=== PATIENT | female | born 1950 | race Caucasian/White ===

== ENCOUNTER 2019-04-22 07:08 | Inpatient (IN) | payer MEDICARE, BC ==
[~2019-04-22] VITALS: Ht 165.1 cm; Wt 81.6 kg
--- NOTE | 2019-04-22 07:09 | Emergency Room Report ---
History of Present Illness General Source: Patient, EMS Present Illness HPI Patient is a 69-year-old female brought in by EMS after increased difficulty with breathing. Patient taken Ambien last night and woke up this morning with increased shortness of breath. She had prior history of COPD as well as prior episodes of pulmonary edema. She was noted to be markedly hypertensive by EMS. She had been started on CPAP prior to arrival. She was initially wheezing but had improvement after breathing treatments by paramedics. She had reportedly been having increased shortness of breath over the past 3 years but this had worsened acutely last night. Patient is a current smoker. She takes Spiriva inhalers as well as medications for hypertension including Coreg. She does not regularly take steroids. Denies any fever. No productive cough Allergies: Coded Allergies: No Known Allergies (Unverified , 04/22/19) Patient History Past Medical History: see triage record, COPD, other - psoriasis Reviewed Nursing Documentation: PMH: Agreed; PSxH: Agreed Review of Systems All Other Systems: negative except mentioned in HPI Physical Exam Sp02 EP Interpretation: reviewed, normal General Appearance: alert, GCS 15, moderate distress, Chronically Ill Head: atraumatic Eyes: bilateral eye PERRL ENT: normal ENT inspection, hearing grossly normal, normal voice Neck: normal inspection, full range of motion, supple, no bony tend Respiratory: no retraction, wheezing Cardiovascular #1: regular rate, rhythm, no edema Gastrointestinal: normal inspection, normal bowel sounds, non tender, soft, no guarding, no hernia Genitourinary: no CVA tenderness Musculoskeletal: normal inspection, back normal, normal range of motion Neurologic: normal inspection, alert, oriented x3, responsive, director strategic account management III-XII nml as tested, speech normal Psychiatric: normal inspection, judgement/insight normal, mood/affect normal Skin: other - generalized scaly rash to extremities Medical Decision Making Diagnostic Impression: Primary Impression: COPD with exacerbation Additional Impressions: Psoriasis Hypertension Hyperglycemia ER Course Patient presented for shortness of breath. Differential included but was not limited to COPD exacerbation, anemia, pneumonia, pneumothorax, myocardial infarction, pericardial effusion, congestive heart failure, acidosis. Because of complexity of patient's case laboratory tests and imaging studies were ordered. Patient had increased work of breathing initially. This improved after breathing treatment and steroids. She was given Duoneb. CTA of chest was ordered due to elevated D-Dimer. CTA showed no acute pulmonary embolism see radiology report for full details. Patient was initially on supplemental oxygen and CPAP via EMS. Given IV steroids as well as breathing treatments. She is maintained on BiPAP. Dr. Tolentino was contacted for inpatient management due to panel physician. Labs Test 04/22/19 07:00 White Blood Count 17.1 K/UL (4.8-10.8) Red Blood Count 4.31 M/UL (4.20-5.40) Hemoglobin 14.0 G/DL (12.0-16.0) Hematocrit 41.9 % (37.0-47.0) Mean Corpuscular Volume 97 FL (80-99) Mean Corpuscular Hemoglobin 32.4 PG (27.0-31.0) Mean Corpuscular Hemoglobin Concent 33.4 G/DL (32.0-36.0) Red Cell Distribution Width 12.0 % (11.6-14.8) Platelet Count 404 K/UL (150-450) Mean Platelet Volume 5.5 FL (6.5-10.1) Neutrophils (%) (Auto) % (45.0-75.0) Lymphocytes (%) (Auto) % (20.0-45.0) Monocytes (%) (Auto) % (1.0-10.0) Eosinophils (%) (Auto) % (0.0-3.0) Basophils (%) (Auto) % (0.0-2.0) Prothrombin Time 10.3 SEC (9.30-11.50) Prothromb Time International Ratio 1.0 (0.9-1.1) Activated Partial Thromboplast Time 25 SEC (23-33) Sodium Level 138 MMOL/L (136-145) Potassium Level 4.0 MMOL/L (3.5-5.1) Chloride Level 102 MMOL/L (98-107) Carbon Dioxide Level 18 MMOL/L (21-32) Anion Gap 18 mmol/L (5-15) Blood Urea Nitrogen 11 mg/dL (7-18) Creatinine 1.1 MG/DL (0.55-1.30) Estimat Glomerular Filtration Rate 49.1 mL/min (>60) Glucose Level 334 MG/DL (74-106) Calcium Level 8.7 MG/DL (8.5-10.1) Total Bilirubin 0.4 MG/DL (0.2-1.0) Aspartate Amino Transf (AST/SGOT) 26 U/L (15-37) Alanine Aminotransferase (ALT/SGPT) 31 U/L (12-78) Alkaline Phosphatase 64 U/L (46-116) Troponin I 0.026 ng/mL (0.000-0.056) Pro-B-Type Natriuretic Peptide 1086 pg/mL (0-125) Total Protein 7.6 G/DL (6.4-8.2) Albumin 3.6 G/DL (3.4-5.0) Globulin 4.0 g/dL Albumin/Globulin Ratio 0.9 (1.0-2.7) Lipase 125 U/L (73-393) EKG Diagnostic Results Rate: tachycardiac - 108 Rhythm: NSR ST Segments: no acute changes Status: improved Disposition: ADMITTED INPATIENT Condition: Stable Ministerio Silva MD Apr 22, 2019 07:09
[2019-04-22 07:14] VITALS: BP 151/90
[2019-04-22] MEDS ORDERED: Albuterol/Ipratropium 3ml neb ONE (07:17)
[2019-04-22 07:25] LABS: HEMATOCRIT 41.9 % (37.0-47.0); MEAN CORPUSCULAR VOLUME 97 FL (80-99); PLATELET COUNT 404 K/UL (150-450); RED BLOOD COUNT 4.31 M/UL (4.20-5.40); WHITE BLOOD COUNT 17.1 K/UL (4.8-10.8)
[2019-04-22] MEDS ORDERED: Solu-MEDROL 125mg Inj IVP ONE (07:30)
--- NOTE | 2019-04-22 07:30 | NUR ---
ED Nurse Note: PT WAS BROUGHT IN BY AMBULANCE FROM HOME DUE TO SOB THAT STARTED 1-2 HOURS AGO. HX OF COPD. EMS REPORTS PT SATS 70% IN ROOM AIR. DIMINISHED LUNG SOUNDS. NOTED SOB AT REST. AAO X4, FOLLOWS COMMANDS.
[2019-04-22] MEDS: Albuterol/Ipratropium 3ml neb HHN SCH ×7 (07:31→13:00)
[2019-04-22 07:35] LABS: ANION GAP 18 mmol/L (5-15); BLOOD UREA NITROGEN 11 mg/dL (7-18); CALCIUM 8.7 MG/DL (8.5-10.1); CARBON DIOXIDE 18 MMOL/L (21-32); CHLORIDE 102 MMOL/L (98-107); CREATININE 1.1 MG/DL (0.55-1.30); SODIUM 138 MMOL/L (136-145)
[2019-04-22 07:46] LABS: ALANINE AMINOTRANSFERASE 31 U/L (12-78); ALBUMIN 3.6 G/DL (3.4-5.0); ALBUMIN/GLOBULIN RATIO 0.9 (1.0-2.7); ALKALINE PHOSPHATASE 64 U/L (46-116); ASPARTATE AMINO TRANSFERASE 26 U/L (15-37); BILIRUBIN,TOTAL 0.4 MG/DL (0.2-1.0)
--- NOTE | 2019-04-22 07:50 | NUR ---
ED Nurse Note: NNAMDI #
--- NOTE | 2019-04-22 07:55 | NUR ---
ED Nurse Note: REMAINING NS OF 200ML DISCONTINUED PER DR PRATHER ORDER.
[2019-04-22] MEDS ORDERED: Omnipaue 350mg/ml 100ml vial INJ PRN (08:15)
[2019-04-22 08:27] LABS: APPEARANCE,URINE CLEAR; BILIRUBIN, URINE NEGATIVE (NEGATIVE); COLOR,URINE PALE YELLOW; GLUCOSE, URINE (UA) 1+ (NEGATIVE); KETONES,URINE NEGATIVE (NEGATIVE); LEUKOCYTE ESTERASE ,URINE NEGATIVE (NEGATIVE); NITRITE,URINE NEGATIVE (NEGATIVE); PH,URINE 6.5 (4.5-8.0); PROTEIN,URINE 3+ (NEGATIVE); UROBILINOGEN,URINE NORMAL MG/DL (0.0-1.0)
[2019-04-22 09:15] VITALS: BP 119/87
[2019-04-22] MEDS ORDERED: Nitroglycerin Subl 0.4mg tab SL PRN (09:30)
[2019-04-22] MEDS ORDERED: Morphine Sulfate 2mg/ml Inj(IV/IM USE ONLY) IVP PRN (09:30)
[2019-04-22] MEDS ORDERED: Promethazine/Codeine 5ml UD ORAL PRN (09:30)
[2019-04-22] MEDS ORDERED: Albuterol/Ipratropium 3ml neb HHN PRN (09:30)
--- NOTE | 2019-04-22 09:56 | Diagnostic Imaging Report ---
Indication: Shortness of breath Technique: One view of the chest Comparison: none Findings: The heart is upper limits normal in size. There is questionably a small amount of pleural fluid on the left. The lungs and right pleural space are clear. Impression: Questionable small left pleural effusion
--- NOTE | 2019-04-22 10:15 | NUR ---
ED Nurse Note: REPEAT LACTIC ACID SENT
--- NOTE | 2019-04-22 10:44 | Diagnostic Imaging Report ---
ndication: Shortness of breath Technique: IV administration nonionic contrast. Spiral acquisitions obtained from the lung bases to the lung apices. Multiplanar and 3-D reconstructions were generated. Total dose length product 773 mGycm. CTDIvol(s) 90, 24, 17 mGy. Dose reduction achieved using automated exposure control Comparison: none Findings: Pulmonary arteries are well-opacified. No intraluminal filling defects or other findings to suggest acute pulmonary embolus are demonstrated. No right ventricular or pulmonary arterial dilatation demonstrated. No thoracic aortic aneurysm or dissection. Normal caliber and branching anatomy of the great neck vessels. There is some reflux of contrast into the hepatic veins, could indicate a component of right heart failure. The heart size is upper limits of normal. Lungs demonstrate minimal atelectatic changes at both lung bases. No infiltrates or effusions. No pericardial effusion. No mediastinal or hilar mass or adenopathy. No axillary or chest wall mass or adenopathy. Visualized portions of the thyroid are unremarkable. The included upper abdominal anatomy is unremarkable. The bones demonstrate an expansile lesion of the medial right fourth rib. There is discontinuity of the posterior cortex This appears to be fused with the T4 transverse process which is also expanded. There is questionably a mild similar abnormality involving the medial right fifth rib. Impression: Negative for evidence of acute pulmonary embolus or other acute thoracic abnormality Abnormal medial right fourth rib, costochondral junction, and medial right fifth rib. Uncertain as to whether this represents an old benign process, such as fibrous dysplasia, versus acute involvement with tumor; suspect the former. Recommend comparison with any prior imaging studies that may be available. If none are available, then recommend bone scanning to determine if this process is metabolically active or quiescent. Incidental finding of and intimal basilar atelectatic changes The CT scanner at [facility] is accredited by the [employer] and the scans are performed using protocols designed to limit radiation exposure to as low as reasonably achievable to attain images of sufficient resolution adequate for diagnostic evaluation.
[2019-04-22 11:20] VITALS: BP 120/75
--- NOTE | 2019-04-22 11:25 | NUR ---
RESPIRATORY NOTE: Patient refused ABG. RN aware
--- NOTE | 2019-04-22 11:40 | NUR ---
ED Nurse Note: PT TRANSPORTED TO SDU WITH ALL BELONGINGS SENT. STABLE WITH BIPAP.
--- NOTE | 2019-04-22 11:45 | NUR ---
NURSE NOTES: Report received from Magdalene DUMONT RN.Pt is a new admission brought to SDU per andrey awake,alert oriented , verbalized feeling better, sob relieved in ER,was on Bipap 15/5 40% Fio2.at ER .
[2019-04-22 11:50] VITALS: BP 124/77
--- NOTE | 2019-04-22 12:00 | NUR ---
NURSE NOTES: Dr Addison at bedside,discussed with pt re plans of care,pt placed on 3L NC.
--- NOTE | 2019-04-22 12:21 | Consultation ---
History of Present Illness General Date patient seen: Apr 22, 2019 Chief Complaint: Dyspnea/Respdistress Present Illness HPI 69-year-old female with hx of HTN, COPD, episodes of pulmonary edema in the past brought in by EMS after increased difficulty with breathing since last night. She was noted to be markedly hypertensive by EMS. She had been started on CPAP prior to arrival ot ER . She was initially wheezing but had improvement after breathing treatments by paramedics. She had CT angio of chest which ruled out pulmonary edema and PE. She received a high dose of steroids in ER as well. She is comfortable now and is only on nasal cannula. Allergies: Coded Allergies: No Known Allergies (Unverified , 04/22/19) Patient History Healthcare decision maker Resuscitation status Advanced Directive on File Past Medical/Surgical History Past Medical/Surgical History: (1) Hypertensive emergency (2) Current smoker (3) History of hypertension Review of Systems All Other Systems: negative except mentioned in HPI Physical Exam General Appearance: WD/WN, no apparent distress Lines, tubes and drains: peripheral HEENT: normocephalic, atraumatic Neck: non-tender, normal alignment Respiratory/Chest: chest wall non-tender, lungs clear Breasts: no masses Cardiovascular/Chest: normal peripheral pulses, normal rate Abdomen: normal bowel sounds Genitourinary/Rectal: normal rectal exam Extremities: normal range of motion, non-tender Skin Exam: normal pigmentation Neurologic: steel finisher II-XII grossly normal Last 24 Hour Vital Signs Date Time Temp Pulse Resp B/P (MAP) Pulse Ox O2 Delivery O2 Flow Rate FiO2 04/22/19 11:40 98.6 79 16 120/75 99 40 04/22/19 11:20 98.6 79 16 120/75 99 40 04/22/19 10:46 75 17 100 Facial 40 04/22/19 09:15 98.3 86 17 119/87 100 Bi-pap 40 04/22/19 09:03 70 14 100 Facial 40 04/22/19 07:35 35 04/22/19 07:30 50 04/22/19 07:25 100 29 100 Facial 100 100 29 100 Bi-Pap 100 04/22/19 07:23 100 29 100 Bi-Pap 100 04/22/19 07:14 98.6 79 24 151/90 70 Room Air 04/22/19 07:14 79 25 04/22/19 07:04 89 24 201/100 (133) 98 Laboratory Tests Test 04/22/19 07:00 04/22/19 08:15 04/22/19 10:20 White Blood Count 17.1 K/UL (4.8-10.8) H Red Blood Count 4.31 M/UL (4.20-5.40) Hemoglobin 14.0 G/DL (12.0-16.0) Hematocrit 41.9 % (37.0-47.0) Mean Corpuscular Volume 97 FL (80-99) Mean Corpuscular Hemoglobin 32.4 PG (27.0-31.0) H Mean Corpuscular Hemoglobin Concent 33.4 G/DL (32.0-36.0) Red Cell Distribution Width 12.0 % (11.6-14.8) Platelet Count 404 K/UL (150-450) Mean Platelet Volume 5.5 FL (6.5-10.1) L Neutrophils (%) (Auto) % (45.0-75.0) Lymphocytes (%) (Auto) % (20.0-45.0) Monocytes (%) (Auto) % (1.0-10.0) Eosinophils (%) (Auto) % (0.0-3.0) Basophils (%) (Auto) % (0.0-2.0) Differential Total Cells Counted 100 Neutrophils % (Manual) 36 % (45-75) L Lymphocytes % (Manual) 59 % (20-45) H Monocytes % (Manual) 4 % (1-10) Eosinophils % (Manual) 1 % (0-3) Basophils % (Manual) 0 % (0-2) Band Neutrophils 0 % (0-8) Platelet Estimate Adequate Platelet Morphology Normal Red Blood Cell Morphology Normal Prothrombin Time 10.3 SEC (9.30-11.50) Prothromb Time International Ratio 1.0 (0.9-1.1) Activated Partial Thromboplast Time 25 SEC (23-33) D-Dimer 1.03 mg/L FEU (0.00-0.49) H Sodium Level 138 MMOL/L (136-145) Potassium Level 4.0 MMOL/L (3.5-5.1) Chloride Level 102 MMOL/L (98-107) Carbon Dioxide Level 18 MMOL/L (21-32) L Anion Gap 18 mmol/L (5-15) H Blood Urea Nitrogen 11 mg/dL (7-18) Creatinine 1.1 MG/DL (0.55-1.30) Estimat Glomerular Filtration Rate 49.1 mL/min (>60) Glucose Level 334 MG/DL (74-106) H Calcium Level 8.7 MG/DL (8.5-10.1) Total Bilirubin 0.4 MG/DL (0.2-1.0) Aspartate Amino Transf (AST/SGOT) 26 U/L (15-37) Alanine Aminotransferase (ALT/SGPT) 31 U/L (12-78) Alkaline Phosphatase 64 U/L (46-116) Troponin I 0.026 ng/mL (0.000-0.056) Pro-B-Type Natriuretic Peptide 1086 pg/mL (0-125) H Total Protein 7.6 G/DL (6.4-8.2) Albumin 3.6 G/DL (3.4-5.0) Globulin 4.0 g/dL Albumin/Globulin Ratio 0.9 (1.0-2.7) L Lipase 125 U/L (73-393) Urine Color Pale yellow Urine Appearance Clear Urine pH 6.5 (4.5-8.0) Urine Specific [place] 1.015 (1.005-1.035) Urine Protein 3+ (NEGATIVE) H Urine Glucose (UA) 1+ (NEGATIVE) H Urine Ketones Negative (NEGATIVE) Urine Blood 1+ (NEGATIVE) H Urine Nitrite Negative (NEGATIVE) Urine Bilirubin Negative (NEGATIVE) Urine Urobilinogen Normal MG/DL (0.0-1.0) Urine Leukocyte Esterase Negative (NEGATIVE) Urine RBC 2-4 /HPF (0 - 2) H Urine WBC 0-2 /HPF (0 - 2) Urine Squamous Epithelial Cells Few /LPF (NONE/OCC) Urine Bacteria Few /HPF (NONE) Urine Hyaline Casts 0-2 /LPF (NONE) H Urine Mucus Few /LPF (NONE/OCC) H Lactic Acid Level 2.10 mmol/L (0.4-2.0) H 1.90 mmol/L (0.66-2.22) Height (Feet): 5 Height (Inches): 6.00 Weight (Pounds): 180 Medications Current Medications Medications (Trade) Dose Ordered Sig/Emma Route PRN Reason Start Time Stop Time Status Last Admin Dose Admin Acetaminophen (Tylenol) 650 mg Q4H PRN ORAL fever 04/22/19 09:30 05/22/19 09:29 Albuterol/ Ipratropium (Albuterol/ Ipratropium) 3 ml Q15M HHN 04/22/19 07:30 04/27/19 07:29 04/22/19 07:32 Albuterol/ Ipratropium (Albuterol/ Ipratropium) 3 ml Q4H PRN HHN dyspnea 04/22/19 09:30 04/27/19 09:29 Clonidine HCl (Catapres Tab) 0.1 mg Q4H PRN ORAL sbp more than 160 04/22/19 09:30 05/22/19 09:29 Dextrose (Dextrose 50%) 25 ml Q30M PRN IV Hypoglycemia 04/22/19 09:30 05/22/19 09:29 Dextrose (Dextrose 50%) 50 ml Q30M PRN IV Hypoglycemia 04/22/19 09:30 05/22/19 09:29 Heparin Sodium (Porcine) (Heparin 5000 units/ml) 5,000 units EVERY 12 HOURS SUBQ 04/22/19 21:00 05/22/19 20:59 Insulin Aspart (NovoLOG) BEFORE MEALS AND HS SUBQ 04/22/19 11:30 05/22/19 11:29 UNV Iohexol (Omnipaque) 100 mg NOW PRN INJ Radiology Procedure 04/22/19 08:15 04/24/19 08:14 Lorazepam (Ativan 2mg/ml 1ml) 0.5 mg Q4H PRN IV For Anxiety 04/22/19 09:30 04/29/19 09:29 Nitroglycerin (Ntg) 0.4 mg Q5M X 3 DOSES PRN SL Prn Chest Pain 04/22/19 09:30 05/22/19 09:29 Ondansetron HCl (Zofran) 4 mg Q6H PRN IVP Nausea & Vomiting 04/22/19 09:30 05/22/19 09:29 Promethazine HCl/ Codeine (Phenergan with Codeine) 5 ml Q6H PRN ORAL cough 04/22/19 09:30 05/22/19 09:29 Temazepam (Restoril) 15 mg HSPRN PRN ORAL Insomnia 04/22/19 09:30 04/29/19 09:29 Theophylline (Dick-Dur) 100 mg EVERY 12 HOURS ORAL 04/22/19 12:00 05/22/19 11:59 Assessment/Plan Problem List: (1) Hypertensive emergency ICD Codes: I16.1 - Hypertensive emergency SNOMED: 562033526044106 (2) History of anxiety disorder ICD Codes: Z86.59 - Personal history of other mental and behavioral disorders SNOMED: 246390331 (3) History of hypertension ICD Codes: Z86.79 - Personal history of other diseases of the circulatory system SNOMED: 127933837 Assessment/Plan: telemetry monitoring I think the cause of this episode is multifactorial including, anxiety attack with component of underlying COPD and uncontrolled hypertension. Echo to check for hypertensive heart disease Cardiology to see check sputum There is no need for high dose steroids. monitor BP Marcello Addison MD Apr 22, 2019 12:21
[2019-04-22] MEDS ORDERED: AMBIEN10 M1 ORAL (12:31)
[2019-04-22] MEDS ORDERED: PAXIL10 MG/5 ML PO (12:31)
[2019-04-22] MEDS ORDERED: ATORVASTATIN CA20 MG ORAL (12:31)
[2019-04-22] MEDS: Theophylline ER 100mg ORAL SCH ×2 (13:35→20:10)
[2019-04-22] MEDS: PARoxetine 10mg tab ORAL SCH (13:38)
[2019-04-22] MEDS ORDERED: Solu-MEDROL 125mg Inj IV SCH (14:00)
--- NOTE | 2019-04-22 15:52 | History & Physical ---
History and Physical History & Physicial Dictated for Int Med-Dr Tolentino no. [id number]. Gino Jesus MD Apr 22, 2019 15:52
[2019-04-22 16:00] VITALS: BP 135/74
--- NOTE | 2019-04-22 16:35 | NUR ---
NURSE NOTES: Pt resting queitly in bed no resp distress presented,verbalized feeling good.
[2019-04-22] MEDS: NovoLOG Insulin Flexpen SUBQ SCH ×2 (18:21→20:12)
--- NOTE | 2019-04-22 19:00 | NUR ---
NURSE NOTES: Pt c/o getting Sob and requesting to be placed on Bipap,resp therapist notified.
--- NOTE | 2019-04-22 19:25 | NUR ---
HAND-OFF: Report given to Levon Fernandez RN.
--- NOTE | 2019-04-22 19:37 | NUR ---
NURSE NOTES: Received patient from Aminta Martins RN. Patient is awake and oriented x4, receiving oxygen via nasal cannula at 3L/min, no signs of respiratory distress, patients O2 Saturation at 98%. IV site is left hand 18g and AC 20g, both IV's patent and asymptomatic. Bed is locked, placed in lowest position, side rails up x2, call light within reach. Will continue to monitor.
[2019-04-22 20:00] VITALS: BP 150/87
[2019-04-22] MEDS: Heparin 5000 units/ml inj SUBQ SCH (20:11)
--- NOTE | 2019-04-22 23:15 | NUR ---
NURSE NOTES: Patient is resting comfortably in bed, no signs of distress. Will continue to monitor.
[2019-04-23] VITALS: BP 121/62
[2019-04-23] MEDS: LORazepam Inj 2mg/ml 1ml IV PRN (03:42)
[2019-04-23 04:00] VITALS: BP 126/69
[2019-04-23 04:40] LABS: BASOPHILS % (AUTO) 0.2 % (0.0-2.0); HEMATOCRIT 38.5 % (37.0-47.0); HEMOGLOBIN 13.3 G/DL (12.0-16.0); LYMPHOCYTES % (AUTO) 15.7 % (20.0-45.0); MEAN CORPUSCULAR VOLUME 94 FL (80-99); NEUTROPHILS % (AUTO) 78.1 % (45.0-75.0); PLATELET COUNT 317 K/UL (150-450); RED BLOOD COUNT 4.09 M/UL (4.20-5.40); RED CELL DISTRIBUTION WIDTH 11.7 % (11.6-14.8); WHITE BLOOD COUNT 12.2 K/UL (4.8-10.8)
[2019-04-23 05:00] LABS: ALANINE AMINOTRANSFERASE 40 U/L (12-78); ALBUMIN 3.8 G/DL (3.4-5.0); ALKALINE PHOSPHATASE 64 U/L (46-116); ANION GAP 9 mmol/L (5-15); ASPARTATE AMINO TRANSFERASE 26 U/L (15-37); BILIRUBIN,TOTAL 0.5 MG/DL (0.2-1.0); BLOOD UREA NITROGEN 15 mg/dL (7-18); CALCIUM 9.6 MG/DL (8.5-10.1); CARBON DIOXIDE 25 MMOL/L (21-32); CHLORIDE 103 MMOL/L (98-107); CREATININE 0.7 MG/DL (0.55-1.30); SODIUM 137 MMOL/L (136-145)
--- NOTE | 2019-04-23 05:32 | NUR ---
NURSE NOTES: Left message to Dr. Addison's office regarding Troponin level.
[2019-04-23] MEDS: NovoLOG Insulin Flexpen SUBQ SCH ×4 (06:05→22:49)
--- NOTE | 2019-04-23 07:10 | NUR ---
HAND-OFF: Report given to Aminta Martins RN. Patient in stable condition.
--- NOTE | 2019-04-23 07:15 | NUR ---
NURSE NOTES: Report received from Cosmo HOOKER.Pt sleeping quietly in bed ,noted no resp distress no signs of pain or discomfort,SR on the monitor,,skin warm and dry,IV sites intact,SR up x2 HOB elevated,bed lock in lowest position,will continue with plans of care.
[2019-04-23 08:00] VITALS: BP 122/68
--- NOTE | 2019-04-23 09:00 | NUR ---
NURSE NOTES: Pt verbalized she had an episode of fall at home a week ago,but denies any discomfort after the fall.
[2019-04-23] MEDS: Theophylline ER 100mg ORAL SCH ×2 (09:23→21:44)
[2019-04-23] MEDS: PARoxetine 10mg tab ORAL SCH (09:23)
[2019-04-23] MEDS: Heparin 5000 units/ml inj SUBQ SCH ×2 (09:25→21:46)
--- NOTE | 2019-04-23 11:54 | History and Physical Report ---
DATE OF ADMISSION: 04/22/2019 CHIEF COMPLAINT: The patient is a 69-year-old female, who presents with a chief complaint of shortness of breath. HISTORY OF PRESENT ILLNESS: She has a history of pulmonary edema twice in the past. The patient has been treated at [facility] for this. The patient states she awoke approximately 3 a.m. this morning. The patient went to the bathroom. The patient experienced a sudden shortness of breath. EMS was called. The patient was placed initially on CPAP. The patient was transferred to [facility]. The patient was admitted with shortness of breath to rule out congestive heart failure versus chronic obstructive pulmonary disease exacerbation. REVIEW OF SYSTEMS: CONSTITUTIONAL: The patient denies weight loss or weight gain. The patient denies fevers or chills. HEENT: The patient denies ear or throat pain. The patient denies headache. CARDIOVASCULAR: The patient denies palpitations or chest pain. CHEST: The patient complains of shortness of breath as above. The patient denies wheezes. ABDOMEN: The patient denies nausea, vomiting, diarrhea, or constipation. GENITOURINARY: The patient denies dysuria or increased frequency of urination. NEUROMUSCULAR: The patient denies seizures or generalized weakness. PAST MEDICAL HISTORY: Significant for: 1. Chronic obstructive pulmonary disease. 2. Hypertension. 3. Hypercholesterolemia. 4. Anxiety disorder. 5. Psoriasis. PAST SURGICAL HISTORY: Significant for left ankle fracture open reduction and internal fixation. CURRENT MEDICATIONS: 1. Atorvastatin 20 mg p.o. at bedtime. 2. Paxil 10 mg p.o. at bedtime. 3. Ambien 10 mg p.o. at bedtime. ALLERGIES: No known drug allergies. However, the patient states she does not like penicillin. SOCIAL HISTORY: The patient is single, however, has a long-time partner. The patient is retired. The patient admits to tobacco use of one-quarter pack per day. The patient has been smoking since age 15. The patient admits to alcohol use of 2 glasses of wine daily. PHYSICAL EXAMINATION: VITAL SIGNS: Temperature 98.6, respirations 25, pulse 79, and blood pressure of 151/90. GENERAL: The patient is a well-developed and well-nourished white female, who is in moderate respiratory distress. HEENT: Eyes, pupils are equal and responsive to light and accommodation. Extraocular movements are intact. NECK: Supple without lymphadenopathy. CHEST: Diffuse wheezes in bilateral bases. Otherwise, without crackles or rales. CARDIOVASCULAR: Regular rhythm and rate. S1, S2 are normal without murmurs, rubs, or gallops. ABDOMEN: Soft, nontender, and nondistended. Positive bowel sounds. No evidence of hepatosplenomegaly. Currently, no rebound or guarding noted. EXTREMITIES: Negative for clubbing, cyanosis, or edema. RECTAL/GENITAL: Not performed. NEUROLOGIC: Cranial nerves II through XII are grossly intact without focal deficits. Motor strength is 5/5 bilaterally. Deep tendon reflexes are 2+ plantar. LABORATORY STUDIES: WBC 17.1, hemoglobin 14.0, hematocrit 41.9, and platelets 404,000. Sodium 138, potassium 4.0, chloride 102, CO2 18, BUN 11, and creatinine 1.1. Glucose 334. Troponin 0.026. BNP elevated at 1086. Chest x-ray was reported as a small left pleural effusion. Otherwise, no acute disease. A CT angio of the chest failed to demonstrate pulmonary embolism. which demonstrated sinus tachycardia at approximately 100 beats per minute. There are no acute ST changes or Q-waves noted. ASSESSMENT: This is a 69-year-old white female. 1. Dyspnea. 2. Congestive heart failure. 3. Chronic obstructive pulmonary disease. 4. Uncontrolled hypertension. 5. Hypercholesteremia. 6. Anxiety disorder. 7. Psoriasis. TREATMENT: 1. Shortness of breath/congestive heart failure. A Cardiology consultation is pending with Dr. Gerardo Coleman. A Pulmonary consultation has been obtained with Dr. Marcello Addison. The patient has been on BiPAP overnight. We will follow recommendations of Pulmonary. 2. Chronic obstructive pulmonary disease. As above, a Pulmonary consultation has been obtained with Dr. Marcello Addison. We will follow recommendations of Pulmonary. 3. Uncontrolled hypertension. The patient has been placed on hydralazine intravenously. We will follow recommendations of Cardiology. 4. Hypercholesterolemia. Continue atorvastatin as above. 5. Anxiety disorder. Continue Paxil as above. 6. Psoriasis. 7. Insomnia. Continue Ambien as above. Gino Jesus M.D. DR: JASIEL JOB#: [id number] CC:
[2019-04-23 12:00] VITALS: BP 113/61
--- NOTE | 2019-04-23 13:33 | Pulmonology Progress Note ---
Assessment/Plan Problems: (1) Hypertensive emergency (2) History of anxiety disorder (3) History of hypertension Assessment/Plan echo reviewed, EF is 40% wbc is lower but the Troponin higher. DR. Coleman will see the pt monitor BP respiratory treatment Subjective Constitutional: Reports: no symptoms HEENT: Repors: no symptoms Respiratory: Reports: no symptoms Allergies: Coded Allergies: No Known Allergies (Unverified , 04/22/19) Objective Last 24 Hour Vital Signs Date Time Temp Pulse Resp B/P (MAP) Pulse Ox O2 Delivery O2 Flow Rate FiO2 04/23/19 12:00 Nasal Cannula 2.0 04/23/19 08:01 73 04/23/19 08:00 Nasal Cannula 2.0 04/23/19 08:00 98.0 61 16 122/68 (86) 100 04/23/19 07:27 Nasal Cannula 2.0 28 04/23/19 07:27 65 19 95 Nasal Cannula 2.0 28 04/23/19 04:00 97.6 67 28 126/69 (88) 98 04/23/19 04:00 Nasal Cannula 3.0 04/23/19 03:34 74 04/23/19 00:00 Nasal Cannula 3.0 04/23/19 00:00 97.6 73 18 121/62 (81) 98 04/22/19 20:39 78 04/22/19 20:00 Nasal Cannula 3.0 04/22/19 20:00 98.6 85 20 150/87 (108) 98 04/22/19 19:55 95 19 98 Nasal Cannula 2.0 28 04/22/19 19:54 98 Nasal Cannula 2.0 28 04/22/19 16:00 Nasal Cannula 3.0 04/22/19 16:00 97.9 97 19 135/74 (94) 97 04/22/19 15:38 98 Intake and Output 04/22/19 04/23/19 19:00 07:00 Intake Total 480 ml 240 ml Balance 480 ml 240 ml Intake Oral 480 ml 240 ml # Voids 2 General Appearance: WD/WN HEENT: normocephalic, atraumatic Respiratory/Chest: chest wall non-tender, normal breath sounds, no accessory muscle use Cardiovascular: normal peripheral pulses Abdomen: normal bowel sounds, soft, non tender Genitourinary: normal external genitalia Skin: no lesions Neurologic/Psychiatric: 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 II-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 grossly normal Lymphatic: no neck adenopathy Laboratory Tests 04/23/19 03:40: White Blood Count 12.2H, Red Blood Count 4.09L, Hemoglobin 13.3, Hematocrit 38.5 , Mean Corpuscular Volume 94, Mean Corpuscular Hemoglobin 32.5H, Mean Corpuscular Hemoglobin Concent 34.4, Red Cell Distribution Width 11.7, Platelet Count 317, Mean Platelet Volume 5.4L, Neutrophils (%) (Auto) 78.1H, Lymphocytes (%) (Auto) 15.7L, Monocytes (%) (Auto) 6.0, Eosinophils (%) (Auto) 0.0, Basophils (%) (Auto) 0.2, Sodium Level 137, Potassium Level 4.0, Chloride Level 103, Carbon Dioxide Level 25, Anion Gap 9, Blood Urea Nitrogen 15, Creatinine 0.7, Estimat Glomerular Filtration Rate > 60, Glucose Level 133#H, Calcium Level 9.6, Total Bilirubin 0.5, Aspartate Amino Transf (AST/SGOT) 26, Alanine Aminotransferase (ALT/SGPT) 40, Alkaline Phosphatase 64, Troponin I 0.736H, Pro- B-Type Natriuretic Peptide [id number], Total Protein 7.7, Albumin 3.8, Globulin 3.9 , Albumin/Globulin Ratio 1.0 Current Medications Medications (Trade) Dose Ordered Sig/Emma Route PRN Reason Start Time Stop Time Status Last Admin Dose Admin Acetaminophen (Tylenol) 650 mg Q4H PRN ORAL fever 04/22/19 09:30 05/22/19 09:29 Albuterol/ Ipratropium (Albuterol/ Ipratropium) 3 ml Q4H PRN HHN dyspnea 04/22/19 09:30 04/27/19 09:29 Clonidine HCl (Catapres Tab) 0.1 mg Q4H PRN ORAL sbp more than 160 04/22/19 09:30 05/22/19 09:29 Dextrose (Dextrose 50%) 25 ml Q30M PRN IV Hypoglycemia 04/22/19 09:30 05/22/19 09:29 Dextrose (Dextrose 50%) 50 ml Q30M PRN IV Hypoglycemia 04/22/19 09:30 05/22/19 09:29 Heparin Sodium (Porcine) (Heparin 5000 units/ml) 5,000 units EVERY 12 HOURS SUBQ 04/22/19 21:00 05/22/19 20:59 04/23/19 09:25 Hydralazine HCl (Apresoline) 10 mg Q4H PRN IV sbp> 160 04/22/19 13:00 05/22/19 12:29 Insulin Aspart (NovoLOG) BEFORE MEALS AND HS SUBQ 04/22/19 16:30 05/22/19 16:29 04/23/19 06:05 Iohexol (Omnipaque) 100 mg NOW PRN INJ Radiology Procedure 04/22/19 08:15 04/24/19 08:14 Lorazepam (Ativan 2mg/ml 1ml) 0.5 mg Q4H PRN IV For Anxiety 04/22/19 09:30 04/29/19 09:29 04/23/19 03:42 Nitroglycerin (Ntg) 0.4 mg Q5M X 3 DOSES PRN SL Prn Chest Pain 04/22/19 09:30 05/22/19 09:29 Ondansetron HCl (Zofran) 4 mg Q6H PRN IVP Nausea & Vomiting 04/22/19 09:30 05/22/19 09:29 04/22/19 20:10 Paroxetine HCl (Paxil) 20 mg DAILY ORAL 04/22/19 12:52 05/22/19 12:51 04/23/19 09:23 Promethazine HCl/ Codeine (Phenergan with Codeine) 5 ml Q6H PRN ORAL cough 04/22/19 09:30 05/22/19 09:29 Temazepam (Restoril) 15 mg HSPRN PRN ORAL Insomnia 04/22/19 09:30 04/29/19 09:29 04/22/19 21:50 Theophylline (Dick-Dur) 100 mg EVERY 12 HOURS ORAL 04/22/19 12:00 05/22/19 11:59 04/23/19 09:23 Marcello Addison MD Apr 23, 2019 13:33
--- NOTE | 2019-04-23 14:11 | NUR ---
CASE MANAGEMENT:REVIEW 69 YR OLD FEMALE BIBA FROM HOME CC: SOB SI: COPD EXACERBATION. HYPERTENSION 98.6 100 29 201/100 70% ON RA WBC+17.1 IS: PLACED ON BIPAP IV SOLUMEDROL DUONEB HHN Q15 MIN 500CC NS BOLUS IV LASIX : TO STEP DOWN UNIT *INTERQUAL CRITERIA MET
[2019-04-23 16:00] VITALS: BP 142/71
--- NOTE | 2019-04-23 16:00 | NUR ---
NURSE NOTES: Dr Tolentino at bedside,discussed with pt re plans of care.
--- NOTE | 2019-04-23 16:11 | Internal Med Progress Note ---
Subjective Physician Name Ermias Tolentino Attending Physician Ermias Tolentino MD Current Medications Medications (Trade) Dose Ordered Sig/Emma Route PRN Reason Start Time Stop Time Status Last Admin Dose Admin Acetaminophen (Tylenol) 650 mg Q4H PRN ORAL fever 04/22/19 09:30 05/22/19 09:29 Albuterol/ Ipratropium (Albuterol/ Ipratropium) 3 ml Q4H PRN HHN dyspnea 04/22/19 09:30 04/27/19 09:29 Clonidine HCl (Catapres Tab) 0.1 mg Q4H PRN ORAL sbp more than 160 04/22/19 09:30 05/22/19 09:29 Dextrose (Dextrose 50%) 25 ml Q30M PRN IV Hypoglycemia 04/22/19 09:30 05/22/19 09:29 Dextrose (Dextrose 50%) 50 ml Q30M PRN IV Hypoglycemia 04/22/19 09:30 05/22/19 09:29 Heparin Sodium (Porcine) (Heparin 5000 units/ml) 5,000 units EVERY 12 HOURS SUBQ 04/22/19 21:00 05/22/19 20:59 04/23/19 09:25 Hydralazine HCl (Apresoline) 10 mg Q4H PRN IV sbp> 160 04/22/19 13:00 05/22/19 12:29 Insulin Aspart (NovoLOG) BEFORE MEALS AND HS SUBQ 04/22/19 16:30 05/22/19 16:29 04/23/19 13:27 Iohexol (Omnipaque) 100 mg NOW PRN INJ Radiology Procedure 04/22/19 08:15 04/24/19 08:14 Lorazepam (Ativan 2mg/ml 1ml) 0.5 mg Q4H PRN IV For Anxiety 04/22/19 09:30 04/29/19 09:29 04/23/19 03:42 Nitroglycerin (Ntg) 0.4 mg Q5M X 3 DOSES PRN SL Prn Chest Pain 04/22/19 09:30 05/22/19 09:29 Ondansetron HCl (Zofran) 4 mg Q6H PRN IVP Nausea & Vomiting 04/22/19 09:30 05/22/19 09:29 04/22/19 20:10 Paroxetine HCl (Paxil) 20 mg DAILY ORAL 04/22/19 12:52 05/22/19 12:51 04/23/19 09:23 Promethazine HCl/ Codeine (Phenergan with Codeine) 5 ml Q6H PRN ORAL cough 04/22/19 09:30 05/22/19 09:29 Temazepam (Restoril) 15 mg HSPRN PRN ORAL Insomnia 04/22/19 09:30 04/29/19 09:29 04/22/19 21:50 Theophylline (Dick-Dur) 100 mg EVERY 12 HOURS ORAL 04/22/19 12:00 05/22/19 11:59 04/23/19 09:23 Allergies: Coded Allergies: No Known Allergies (Unverified , 04/22/19) Subjective awake, alert, responsive, C/O constipation, No BM X 3 days, Less SOB, Off bipap Objective Last Vital Signs Date Time Temp Pulse Resp B/P (MAP) Pulse Ox O2 Delivery O2 Flow Rate FiO2 04/23/19 12:00 58 04/23/19 12:00 97.0 20 113/61 (78) 97 04/23/19 12:00 Nasal Cannula 2.0 04/23/19 07:27 28 Laboratory Tests Test 04/23/19 03:40 White Blood Count 12.2 K/UL (4.8-10.8) H Red Blood Count 4.09 M/UL (4.20-5.40) L Hemoglobin 13.3 G/DL (12.0-16.0) Hematocrit 38.5 % (37.0-47.0) Mean Corpuscular Volume 94 FL (80-99) Mean Corpuscular Hemoglobin 32.5 PG (27.0-31.0) H Mean Corpuscular Hemoglobin Concent 34.4 G/DL (32.0-36.0) Red Cell Distribution Width 11.7 % (11.6-14.8) Platelet Count 317 K/UL (150-450) Mean Platelet Volume 5.4 FL (6.5-10.1) L Neutrophils (%) (Auto) 78.1 % (45.0-75.0) H Lymphocytes (%) (Auto) 15.7 % (20.0-45.0) L Monocytes (%) (Auto) 6.0 % (1.0-10.0) Eosinophils (%) (Auto) 0.0 % (0.0-3.0) Basophils (%) (Auto) 0.2 % (0.0-2.0) Sodium Level 137 MMOL/L (136-145) Potassium Level 4.0 MMOL/L (3.5-5.1) Chloride Level 103 MMOL/L (98-107) Carbon Dioxide Level 25 MMOL/L (21-32) Anion Gap 9 mmol/L (5-15) Blood Urea Nitrogen 15 mg/dL (7-18) Creatinine 0.7 MG/DL (0.55-1.30) Estimat Glomerular Filtration Rate > 60 mL/min (>60) Glucose Level 133 MG/DL (74-106) #H Calcium Level 9.6 MG/DL (8.5-10.1) Total Bilirubin 0.5 MG/DL (0.2-1.0) Aspartate Amino Transf (AST/SGOT) 26 U/L (15-37) Alanine Aminotransferase (ALT/SGPT) 40 U/L (12-78) Alkaline Phosphatase 64 U/L (46-116) Troponin I 0.736 ng/mL (0.000-0.056) Pro-B-Type Natriuretic Peptide 75519 pg/mL (0-125) H Total Protein 7.7 G/DL (6.4-8.2) Albumin 3.8 G/DL (3.4-5.0) Globulin 3.9 g/dL Albumin/Globulin Ratio 1.0 (1.0-2.7) Intake and Output 04/22/19 04/23/19 19:00 07:00 Intake Total 480 ml 240 ml Balance 480 ml 240 ml Intake Oral 480 ml 240 ml # Voids 2 Objective General: No acute distress, awake and alert HEENT: NCAT, sclera anicteric, PERRL, EOMI. Neck: Supple, no significant jugular venous distention, Lungs: Decrease air at bases, clear to auscultation bilaterally, no Wheeze or Rales. Heart: Regular rate and rhythm, normal S1/S2, no murmurs. Abdomen: soft, nontender, nondistended. Normoactive bowel sounds. / Rectal: Refused and deferred. Extremities: No Cyanosis , clubbing or edema. Neuro: A&O x 3, Able to move all extremities Skin: warm, no rashes or lesions Psych: Normal mood and affect Assessment/Plan Assessment/Plan ASSESSMENT: This is a 69-year-old white female. 1. Acute Respiratory failure wean off BiPAP. 2. Acute Congestive heart failure. 3. Chronic obstructive pulmonary disease. 4. Uncontrolled hypertension. 5. Hypercholesteremia. 6. Anxiety disorder. 7. Psoriasis. TREATMENT: 1. Shortness of breath/congestive heart failure. A Cardiology consultation is pending with Dr. Gerardo Coleman. A Pulmonary consultation has been obtained with Dr. Marcello Addison. The patient has been on BiPAP overnight. We will follow recommendations of Pulmonary. 2. Chronic obstructive pulmonary disease. As above, a Pulmonary consultation has been obtained with Dr. Marcello Addison. We will follow recommendations of Pulmonary. 3. Uncontrolled hypertension. The patient has been placed on hydralazine intravenously. We will follow recommendations of Cardiology. 4. Hypercholesterolemia. Continue atorvastatin as above. 5. Anxiety disorder. Continue Paxil as above. 6. Psoriasis. 7. Insomnia. Continue Ambien as above. Start Lasix IV heparin SQ 2D Echo Full code Miralax Ermias Lew MD Apr 23, 2019 16:11
[2019-04-23] MEDS ORDERED: Miralax 17gm pkt ORAL SCH (16:15)
[2019-04-23] MEDS: Aspirin EC 81mg tab ORAL SCH (16:47)
[2019-04-23] MEDS: Docusate 100mg cap ORAL SCH (17:34)
--- NOTE | 2019-04-23 18:51 | NUR ---
NURSE NOTES: Pt stable ,denies any resp distress or discomfort.
--- NOTE | 2019-04-23 19:20 | NUR ---
HAND-OFF: Report given to Vanessa Macdonald RN.
--- NOTE | 2019-04-23 19:25 | NUR ---
NURSE NOTES: Received report from Aminta Martins RN. Pt is stable, alert and oriented to self, place, situation, and time. Pt currently has nasal cannula at 2 LPM satting at 98%. Denies pain or distress at this time. Will continue to monitor closely
--- NOTE | 2019-04-23 19:59 | Cardiology Progress Note ---
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 dvt hs diuretic hhn repeat trop and ekg [id number] Objective Last 24 Hour Vital Signs Date Time Temp Pulse Resp B/P (MAP) Pulse Ox O2 Delivery O2 Flow Rate FiO2 04/23/19 16:00 Nasal Cannula 2.0 04/23/19 16:00 71 04/23/19 16:00 96.6 58 20 142/71 (94) 98 04/23/19 12:00 58 04/23/19 12:00 97.0 97 20 113/61 (78) 97 04/23/19 12:00 Nasal Cannula 2.0 04/23/19 08:01 73 04/23/19 08:00 Nasal Cannula 2.0 04/23/19 08:00 98.0 61 16 122/68 (86) 100 04/23/19 07:27 Nasal Cannula 2.0 28 04/23/19 07:27 65 19 95 Nasal Cannula 2.0 28 04/23/19 04:00 97.6 67 28 126/69 (88) 98 04/23/19 04:00 Nasal Cannula 3.0 04/23/19 03:34 74 04/23/19 00:00 Nasal Cannula 3.0 04/23/19 00:00 97.6 73 18 121/62 (81) 98 04/22/19 20:39 78 04/22/19 20:00 Nasal Cannula 3.0 04/22/19 20:00 98.6 85 20 150/87 (108) 98 Intake and Output 04/22/19 04/23/19 18:59 06:59 Intake Total 480 ml 240 ml Balance 480 ml 240 ml Intake Oral 480 ml 240 ml # Voids 2 Laboratory Tests Test 04/23/19 03:40 White Blood Count 12.2 K/UL (4.8-10.8) H Red Blood Count 4.09 M/UL (4.20-5.40) L Hemoglobin 13.3 G/DL (12.0-16.0) Hematocrit 38.5 % (37.0-47.0) Mean Corpuscular Volume 94 FL (80-99) Mean Corpuscular Hemoglobin 32.5 PG (27.0-31.0) H Mean Corpuscular Hemoglobin Concent 34.4 G/DL (32.0-36.0) Red Cell Distribution Width 11.7 % (11.6-14.8) Platelet Count 317 K/UL (150-450) Mean Platelet Volume 5.4 FL (6.5-10.1) L Neutrophils (%) (Auto) 78.1 % (45.0-75.0) H Lymphocytes (%) (Auto) 15.7 % (20.0-45.0) L Monocytes (%) (Auto) 6.0 % (1.0-10.0) Eosinophils (%) (Auto) 0.0 % (0.0-3.0) Basophils (%) (Auto) 0.2 % (0.0-2.0) Sodium Level 137 MMOL/L (136-145) Potassium Level 4.0 MMOL/L (3.5-5.1) Chloride Level 103 MMOL/L (98-107) Carbon Dioxide Level 25 MMOL/L (21-32) Anion Gap 9 mmol/L (5-15) Blood Urea Nitrogen 15 mg/dL (7-18) Creatinine 0.7 MG/DL (0.55-1.30) Estimat Glomerular Filtration Rate > 60 mL/min (>60) Glucose Level 133 MG/DL (74-106) #H Calcium Level 9.6 MG/DL (8.5-10.1) Total Bilirubin 0.5 MG/DL (0.2-1.0) Aspartate Amino Transf (AST/SGOT) 26 U/L (15-37) Alanine Aminotransferase (ALT/SGPT) 40 U/L (12-78) Alkaline Phosphatase 64 U/L (46-116) Troponin I 0.736 ng/mL (0.000-0.056) Pro-B-Type Natriuretic Peptide 37164 pg/mL (0-125) H Total Protein 7.7 G/DL (6.4-8.2) Albumin 3.8 G/DL (3.4-5.0) Globulin 3.9 g/dL Albumin/Globulin Ratio 1.0 (1.0-2.7) Gerardo Coleman MD Apr 23, 2019 19:59
[2019-04-23 20:00] VITALS: BP 137/66
[2019-04-23] MEDS: Atorvastatin 20mg tab ORAL SCH (21:44)
[2019-04-24] VITALS (7 sets, daily range): BP systolic 123–157; BP diastolic 62–81
--- NOTE | 2019-04-24 | Consultation ---
DATE OF CONSULTATION: 04/23/2019 CARDIOLOGY CONSULTATION CONSULTING PHYSICIAN: Gerardo Coleman M.D. REFERRING PHYSICIANS: 1. Gino Jesus M.D. 2. Marcello Addison M.D. REASON FOR REFERRAL: Congestive heart failure. HISTORY OF PRESENT ILLNESS: This is a 69-year-old female who is usually followed by Dr. Avila at [facility]. The patient went out with her girlfriend last night, had some crispy chicken with salt and some alcoholic beverages, got home, took her medication, went to bed and woke up to go to the bathroom, felt not being able to breathe and that gradually got worse to the point that she was not able to be breathe. They called 911. She was brought to the emergency room at [facility] with the use of BiPAP. She is now better. She has had a similar event approximately two and a half years ago when she was hospitalized at [facility] because of diverticulitis. She says at that time she had increasing amount of fluids and she developed heart failure at that time too. She uses one pillow. Besides last night, there is usually no PND. No orthopnea. There is no dizziness or lightheadedness on standing except for rare occasions and she has occasional palpitations. PAST MEDICAL HISTORY: Positive for history of depression and renal artery stenosis, status post stenting. She has a history of chest pain that is very short in duration. She has a history of congestive heart failure, hyperlipidemia, renal artery stenosis, CAD, deep venous thrombosis of popliteal artery on the left side, and generalized anxiety disorder. She had chest pain syndrome with normal coronaries, poor exercise capacity mostly and hypertension, right fourth rib bone mass, psoriasis, retinal detachment, cervical arthritis, tobacco use disorder, chronic insomnia, and rib fracture. ALLERGIES: She is not allergic to any medications. She does not like penicillin. SOCIAL HISTORY: She smokes and drinks alcoholic beverages. No drug use. REVIEW OF SYSTEMS: GASTROINTESTINAL: There is some nausea. No vomiting. No diarrhea. She has constipation. No bloody or black stool. GENITOURINARY: She does not have any burning or blood in her urine. PULMONARY: Positive for coughing and some wheezing. CONSTITUTIONAL: No fevers or chills. She has occasional night sweats. NEUROLOGIC: As mentioned in the HPI. CARDIAC: As mentioned in the HPI. PHYSICAL EXAMINATION: GENERAL: Shows to be an elderly female, in no respiratory distress. VITAL SIGNS: Blood pressure is 144/71, heart rate of 58, and temperature 96.6. NECK: Supple. LUNGS: Decreased breath sounds are noted bilaterally. Minimal if any crackles are noted. CARDIAC: Regular rate and rhythm. No heaves or thrills noted. ABDOMEN: Soft and nontender. Positive bowel sounds. EXTREMITIES: There is no clubbing or cyanosis, nor is there any edema. LABORATORY VALUES: Electrocardiogram shows sinus rhythm with some T-wave inversion in lead I and aVL. White count of 12.2, down from 17.1, hemoglobin 13.3, and platelet count of 317. Sodium is 137, potassium 4.0, chloride 102, bicarb 25, BUN 15, creatinine 0.7, and glucose of 133. Lactic acid initially 2.1, subsequent 1.9. Liver function tests are normal. Troponin 0.736, initially was 0.026. ProBNP initially 1000, subsequently 10,000. INR of 1. D-dimer 1.3. Urinalysis is fairly unremarkable. CTA of the chest shows negative for evidence of acute pulmonary embolism, no thoracic abnormality, medial right fourth rib costochondral joint and abnormality. A chest x-ray performed shows questionable small left-sided pleural effusion. ASSESSMENT AND PLAN: 1. Acute shortness of breath. 2. History of congestive heart failure with preserved LV function. 3. History of deep venous thrombosis. 4. History of renal artery stenosis, status post PUMP STITCHER, history of normal coronary arteries per [facility]' record. 5. History of hypertension. 6. History of tobacco use disorder. 7. Probable underlying COPD. 8. History of depression. 9. History of hyperlipidemia. 10. Generalized anxiety disorder. This patient was seen in cardiac consultation. The patient's records from [facility] were reviewed. Dr. Avila has not indicated that the patient had normal coronaries. Her electrocardiogram shows some abnormalities with respect to T waves, although the chronicity of that abnormality is not known. The old EKGs need to be compared to at [facility] and unfortunately on my present device, I am unable to access those old EKGs. Nevertheless, she has already had a CT pulmonary angiogram. She does have a history of smoking extensively and there is likely a component of COPD and an echocardiogram will be ordered. Diuretics to be continued for treatment of COPD per Dr. Addison. If there is any left ventricular systolic dysfunction on final review, then we will consider other testing. Her prior echocardiogram was in 2018 at [facility] that showed left ventricular systolic function to be normal. Therefore, if there is any significant abnormalities, that may need to be pursued. Continue diuretics and treatment of her breathing. Gerardo Coleman M.D. DR: AZIZA JOB#: [id number] CC:
--- NOTE | 2019-04-24 01:58 | NUR ---
NURSE NOTES: Pt rhythm converted to atrial fib and flutter on 04/23/19 at 2331. Pt is asymptomatic, no complaints of chest pain, dizziness, or lightheadedness. VS: BP 123/67, T 98.1, P 93, RR 20, Sao2 98% via nasal cannula at 3 LPM. 12 lead ECG revealed atrial fib, ST and T wave abnormalities. Called Dr. Gerardo Coleman who ordered troponin labs in the morning. No other orders given. Will continue to monitor closely.
[2019-04-24 05:41] LABS: BASOPHILS % (AUTO) 0.5 % (0.0-2.0); EOSINOPHILS % (AUTO) 0.7 % (0.0-3.0); HEMATOCRIT 37.7 % (37.0-47.0); HEMOGLOBIN 12.9 G/DL (12.0-16.0); LYMPHOCYTES % (AUTO) 40.9 % (20.0-45.0); MEAN CORPUSCULAR VOLUME 95 FL (80-99); MONOCYTES % (AUTO) 5.1 % (1.0-10.0); NEUTROPHILS % (AUTO) 52.8 % (45.0-75.0); PLATELET COUNT 284 K/UL (150-450); RED BLOOD COUNT 3.97 M/UL (4.20-5.40); RED CELL DISTRIBUTION WIDTH 11.8 % (11.6-14.8)
[2019-04-24] MEDS: LORazepam Inj 2mg/ml 1ml IV PRN ×2 (05:54→23:15)
[2019-04-24 06:03] LABS: ALANINE AMINOTRANSFERASE 31 U/L (12-78); ALBUMIN 3.5 G/DL (3.4-5.0); ALKALINE PHOSPHATASE 57 U/L (46-116); ANION GAP 7 mmol/L (5-15); ASPARTATE AMINO TRANSFERASE 18 U/L (15-37); BILIRUBIN,TOTAL 0.3 MG/DL (0.2-1.0); BLOOD UREA NITROGEN 22 mg/dL (7-18); CALCIUM 9.2 MG/DL (8.5-10.1); CARBON DIOXIDE 30 MMOL/L (21-32); CHLORIDE 103 MMOL/L (98-107); CHOLESTEROL 181 MG/DL (< 200); CREATININE 0.7 MG/DL (0.55-1.30); HDL CHOLESTEROL 45 MG/DL (40-60); PHOSPHORUS 3.2 MG/DL (2.5-4.9); POTASSIUM 3.3 MMOL/L (3.5-5.1); SODIUM 140 MMOL/L (136-145); TRIGLYCERIDES 223 MG/DL (30-150)
[2019-04-24] MEDS: NovoLOG Insulin Flexpen SUBQ SCH ×4 (06:30→21:00)
--- NOTE | 2019-04-24 07:40 | NUR ---
NURSE NOTES: Report received from Vanessa Macdonald RN .Pt in bed asleep but easily awakens with verbal command, on 2L NC denies any c/o resp distress or chest pain, SR on the monitor,HOB elevated,call funk within reach at bedside,SR up x2 ,skin warm and dry IV site to Lt Hand intact,bed lock in lowest position,will continue with plans of care.
--- NOTE | 2019-04-24 09:35 | Pulmonology Progress Note ---
Assessment/Plan Assessment/Plan ASSESSMENT Acute respiratory failure-resolved COPD Acute CHF with new systolic dysfunction Hypertensive urgency Elevated troponin Severe pulmonary hypertension Diabetes mellitus with hyperglycemia Hyperlipidemia Tobacco use disorder PLAN OF CARE WILL Off BiPAP O2 titrate to keep pulse ox above 92% HHN ATC and prn Trial of theophylline ; a/tussive prn no myrna for steroids at thsi time diuresis Antiplatelet therapy and statin, lipuid apnel noted CXR noted CTA no PE Echo with rEF 40% -apparently new and RVSP 79 ( apparently history of normal coronary arteries per [facility] record-as per cardio notes) prior hx of renal artery stenosis, status post TRAVEL MED SURG RN, BS management with SSI check HgbA1c troponin trending down phone counselor on smoking cessation declined Nicotine patch for now K replaced, Mg stable X ray ribs pain management case discussed and evaluated by supervising physician Subjective Allergies: Coded Allergies: No Known Allergies (Unverified , 04/22/19) Subjective troponin trending down, no chest pain + SOB reported falling at home few days ago, thinks may have broken rib, pointing on the right side back area indicating pain K-3.3, stable Mg leuk trending down, afebrile pulse ox stable on O2 via NC Objective Last 24 Hour Vital Signs Date Time Temp Pulse Resp B/P (MAP) Pulse Ox O2 Delivery O2 Flow Rate FiO2 04/24/19 08:36 Nasal Cannula 2.0 28 04/24/19 04:00 98.4 67 18 131/68 (89) 97 04/24/19 04:00 66 04/24/19 04:00 Nasal Cannula 2.0 04/24/19 01:00 Nasal Cannula 2.0 04/24/19 00:00 90 04/24/19 00:00 98.1 93 20 123/67 (85) 98 04/23/19 20:46 Nasal Cannula 2.0 28 04/23/19 20:46 70 19 97 Nasal Cannula 2.0 28 04/23/19 20:00 98.1 63 20 137/66 (89) 98 04/23/19 20:00 Nasal Cannula 2.0 04/23/19 19:25 77 04/23/19 16:00 Nasal Cannula 2.0 04/23/19 16:00 71 04/23/19 16:00 96.6 58 20 142/71 (94) 98 10/25/19 12:00 58 04/23/19 12:00 97.0 97 20 113/61 (78) 97 04/23/19 12:00 Nasal Cannula 2.0 Intake and Output 04/23/19 04/24/19 19:00 07:00 Intake Total 720 ml 650 ml Balance 720 ml 650 ml Intake Oral 720 ml 650 ml # Voids 3 2 General Appearance: no acute distress HEENT: normocephalic, atraumatic, anicteric, mucous membranes moist, PERRL, other - O2 viqa NC Respiratory/Chest: lungs clear - with moderate air exchange, no wheezing, no accessory muscle use Cardiovascular: normal peripheral pulses, normal rate Abdomen: soft, non tender, non distended Extremities: other - trace edema b Neurologic/Psychiatric: alert, oriented x 3, responsive Musculoskeletal: normal muscle bulk Microbiology Date/Time Source Procedure Growth Status 04/22/19 06:45 Blood Blood Culture - Preliminary NO GROWTH AFTER 24 HOURS Resulted 04/22/19 06:45 Blood Blood Culture - Preliminary NO GROWTH AFTER 24 HOURS Resulted Laboratory Tests 04/24/19 03:28: White Blood Count 11.0H, Red Blood Count 3.97L, Hemoglobin 12.9, Hematocrit 37.7 , Mean Corpuscular Volume 95, Mean Corpuscular Hemoglobin 32.6H, Mean Corpuscular Hemoglobin Concent 34.3, Red Cell Distribution Width 11.8, Platelet Count 284, Mean Platelet Volume 5.6L, Neutrophils (%) (Auto) 52.8, Lymphocytes ( %) (Auto) 40.9, Monocytes (%) (Auto) 5.1, Eosinophils (%) (Auto) 0.7, Basophils (%) (Auto) 0.5, Sodium Level 140, Potassium Level 3.3L, Chloride Level 103, Carbon Dioxide Level 30, Anion Gap 7, Blood Urea Nitrogen 22H, Creatinine 0.7, Estimat Glomerular Filtration Rate > 60, Glucose Level 86, Calcium Level 9.2, Phosphorus Level 3.2, Magnesium Level 1.9, Total Bilirubin 0.3, Aspartate Amino Transf (AST/SGOT) 18, Alanine Aminotransferase (ALT/SGPT) 31, Alkaline Phosphatase 57, Troponin I 0.250H, Total Protein 7.1, Albumin 3.5, Globulin 3.6 , Albumin/Globulin Ratio 1.0, Triglycerides Level 223H, Cholesterol Level 181, LDL Cholesterol 110H, HDL Cholesterol 45, Cholesterol/HDL Ratio 4.0 Current Medications Medications (Trade) Dose Ordered Sig/Emma Route PRN Reason Start Time Stop Time Status Last Admin Dose Admin Acetaminophen (Tylenol) 650 mg Q4H PRN ORAL fever 04/22/19 09:30 05/22/19 09:29 Albuterol/ Ipratropium (Albuterol/ Ipratropium) 3 ml Q4H PRN HHN dyspnea 04/22/19 09:30 04/27/19 09:29 Aspirin (Ecotrin) 81 mg DAILY ORAL 04/23/19 16:30 05/23/19 16:29 04/23/19 16:47 Atorvastatin Calcium (Lipitor) 20 mg BEDTIME ORAL 04/23/19 21:00 05/23/19 20:59 04/23/19 21:44 Clonidine HCl (Catapres Tab) 0.1 mg Q4H PRN ORAL sbp more than 160 04/22/19 09:30 05/22/19 09:29 Dextrose (Dextrose 50%) 25 ml Q30M PRN IV Hypoglycemia 04/22/19 09:30 05/22/19 09:29 Dextrose (Dextrose 50%) 50 ml Q30M PRN IV Hypoglycemia 04/22/19 09:30 05/22/19 09:29 Docusate Sodium (Colace) 100 mg TWICE A DAY ORAL 04/23/19 18:00 05/23/19 17:59 04/23/19 17:34 Furosemide (Lasix) 40 mg DAILY IV 04/24/19 09:00 05/24/19 08:59 Heparin Sodium (Porcine) (Heparin 5000 units/ml) 5,000 units EVERY 12 HOURS SUBQ 04/22/19 21:00 05/22/19 20:59 04/23/19 21:46 Hydralazine HCl (Apresoline) 10 mg Q4H PRN IV sbp> 160 04/22/19 13:00 05/22/19 12:29 Insulin Aspart (NovoLOG) BEFORE MEALS AND HS SUBQ 04/22/19 16:30 05/22/19 16:29 04/23/19 22:49 Lorazepam (Ativan 2mg/ml 1ml) 0.5 mg Q4H PRN IV For Anxiety 04/22/19 09:30 04/29/19 09:29 04/24/19 05:54 Nitroglycerin (Ntg) 0.4 mg Q5M X 3 DOSES PRN SL Prn Chest Pain 04/22/19 09:30 05/22/19 09:29 Ondansetron HCl (Zofran) 4 mg Q6H PRN IVP Nausea & Vomiting 04/22/19 09:30 05/22/19 09:29 04/22/19 20:10 Paroxetine HCl (Paxil) 20 mg DAILY ORAL 04/22/19 12:52 05/22/19 12:51 04/23/19 09:23 Promethazine HCl/ Codeine (Phenergan with Codeine) 5 ml Q6H PRN ORAL cough 04/22/19 09:30 05/22/19 09:29 Temazepam (Restoril) 15 mg HSPRN PRN ORAL Insomnia 04/22/19 09:30 04/29/19 09:29 04/24/19 00:35 Theophylline (Dick-Dur) 100 mg EVERY 12 HOURS ORAL 04/22/19 12:00 05/22/19 11:59 04/23/19 21:44 Harini Brock D[employer]ON[employer] OPERATOR Apr 24, 2019 09:35
[2019-04-24] MEDS: Docusate 100mg cap ORAL SCH ×2 (09:51→18:08)
[2019-04-24] MEDS: Theophylline ER 100mg ORAL SCH ×2 (09:51→20:57)
[2019-04-24] MEDS: Aspirin EC 81mg tab ORAL SCH (09:51)
[2019-04-24] MEDS: PARoxetine 10mg tab ORAL SCH (09:52)
[2019-04-24] MEDS: Heparin 5000 units/ml inj SUBQ SCH ×2 (10:06→20:58)
--- NOTE | 2019-04-24 11:30 | NUR ---
NURSE NOTES: Pt awake at this time,stable in no resp distress BS taken 94 no coverage given,pt ate lunch with appetite.
--- NOTE | 2019-04-24 13:20 | NUR ---
TRANSFER TO FLOOR: Patient transferred to ,3E room 319 -2 per bed awake,alert stable in no resp distress. Report given to Sonny Mina RN.. Belongings check with receiving RN .
[2019-04-24] MEDS: Albuterol/Ipratropium 3ml neb HHN SCH ×2 (15:12→18:53)
--- NOTE | 2019-04-24 16:20 | Internal Med Progress Note ---
Subjective Date of Service: Apr 24, 2019 Physician Name Gino Jesus Attending Physician Ermias Tolentino MD Current Medications Medications (Trade) Dose Ordered Sig/Emma Route PRN Reason Start Time Stop Time Status Last Admin Dose Admin Acetaminophen (Tylenol) 650 mg Q4H PRN ORAL fever 04/22/19 09:30 05/22/19 09:29 Albuterol/ Ipratropium (Albuterol/ Ipratropium) 3 ml Q4H PRN HHN dyspnea 04/22/19 09:30 04/27/19 09:29 Albuterol/ Ipratropium (Albuterol/ Ipratropium) 3 ml TIDRT HHN 04/24/19 13:00 04/29/19 12:59 Aspirin (Ecotrin) 81 mg DAILY ORAL 04/23/19 16:30 05/23/19 16:29 04/24/19 09:51 Atorvastatin Calcium (Lipitor) 20 mg BEDTIME ORAL 04/23/19 21:00 05/23/19 20:59 04/23/19 21:44 Clonidine HCl (Catapres Tab) 0.1 mg Q4H PRN ORAL sbp more than 160 04/22/19 09:30 05/22/19 09:29 Dextrose (Dextrose 50%) 25 ml Q30M PRN IV Hypoglycemia 04/22/19 09:30 05/22/19 09:29 Dextrose (Dextrose 50%) 50 ml Q30M PRN IV Hypoglycemia 04/22/19 09:30 05/22/19 09:29 Docusate Sodium (Colace) 100 mg TWICE A DAY ORAL 04/23/19 18:00 05/23/19 17:59 04/24/19 09:51 Furosemide (Lasix) 40 mg DAILY IV 04/24/19 09:00 05/24/19 08:59 04/24/19 09:54 Heparin Sodium (Porcine) (Heparin 5000 units/ml) 5,000 units EVERY 12 HOURS SUBQ 04/22/19 21:00 05/22/19 20:59 04/24/19 10:06 Hydralazine HCl (Apresoline) 10 mg Q4H PRN IV sbp> 160 04/22/19 13:00 05/22/19 12:29 Insulin Aspart (NovoLOG) BEFORE MEALS AND HS SUBQ 04/22/19 16:30 05/22/19 16:29 04/23/19 22:49 Lorazepam (Ativan 2mg/ml 1ml) 0.5 mg Q4H PRN IV For Anxiety 04/22/19 09:30 04/29/19 09:29 04/24/19 05:54 Nitroglycerin (Ntg) 0.4 mg Q5M X 3 DOSES PRN SL Prn Chest Pain 04/22/19 09:30 05/22/19 09:29 Ondansetron HCl (Zofran) 4 mg Q6H PRN IVP Nausea & Vomiting 04/22/19 09:30 05/22/19 09:29 04/22/19 20:10 Paroxetine HCl (Paxil) 20 mg DAILY ORAL 04/22/19 12:52 05/22/19 12:51 04/24/19 09:52 Promethazine HCl/ Codeine (Phenergan with Codeine) 5 ml Q6H PRN ORAL cough 04/22/19 09:30 05/22/19 09:29 Temazepam (Restoril) 15 mg HSPRN PRN ORAL Insomnia 04/22/19 09:30 04/29/19 09:29 04/24/19 00:35 Theophylline (Dick-Dur) 100 mg EVERY 12 HOURS ORAL 04/22/19 12:00 05/22/19 11:59 04/24/19 09:51 Allergies: Coded Allergies: No Known Allergies (Unverified , 04/22/19) ROS Limited/Unobtainable: No Constitutional: Reports: no symptoms HEENT: Reports: no symptoms Cardiovascular: Reports: no symptoms Respiratory: Reports: shortness of breath Gastrointestinal/Abdominal: Reports: no symptoms Genitourinary: Reports: no symptoms Neurologic/Psychiatric: Reports: no symptoms Subjective 69 YO F admitted with respiratory failure. Now acute CHF. Cover for Int Jaden- DR Tolentino Objective Last Vital Signs Date Time Temp Pulse Resp B/P (MAP) Pulse Ox O2 Delivery O2 Flow Rate FiO2 04/24/19 12:00 97.4 77 21 132/62 (85) 96 04/24/19 12:00 Nasal Cannula 2.0 04/24/19 08:36 28 Laboratory Tests Test 04/24/19 03:28 White Blood Count 11.0 K/UL (4.8-10.8) H Red Blood Count 3.97 M/UL (4.20-5.40) L Hemoglobin 12.9 G/DL (12.0-16.0) Hematocrit 37.7 % (37.0-47.0) Mean Corpuscular Volume 95 FL (80-99) Mean Corpuscular Hemoglobin 32.6 PG (27.0-31.0) H Mean Corpuscular Hemoglobin Concent 34.3 G/DL (32.0-36.0) Red Cell Distribution Width 11.8 % (11.6-14.8) Platelet Count 284 K/UL (150-450) Mean Platelet Volume 5.6 FL (6.5-10.1) L Neutrophils (%) (Auto) 52.8 % (45.0-75.0) Lymphocytes (%) (Auto) 40.9 % (20.0-45.0) Monocytes (%) (Auto) 5.1 % (1.0-10.0) Eosinophils (%) (Auto) 0.7 % (0.0-3.0) Basophils (%) (Auto) 0.5 % (0.0-2.0) Sodium Level 140 MMOL/L (136-145) Potassium Level 3.3 MMOL/L (3.5-5.1) L Chloride Level 103 MMOL/L (98-107) Carbon Dioxide Level 30 MMOL/L (21-32) Anion Gap 7 mmol/L (5-15) Blood Urea Nitrogen 22 mg/dL (7-18) H Creatinine 0.7 MG/DL (0.55-1.30) Estimat Glomerular Filtration Rate > 60 mL/min (>60) Glucose Level 86 MG/DL (74-106) Calcium Level 9.2 MG/DL (8.5-10.1) Phosphorus Level 3.2 MG/DL (2.5-4.9) Magnesium Level 1.9 MG/DL (1.8-2.4) Total Bilirubin 0.3 MG/DL (0.2-1.0) Aspartate Amino Transf (AST/SGOT) 18 U/L (15-37) Alanine Aminotransferase (ALT/SGPT) 31 U/L (12-78) Alkaline Phosphatase 57 U/L (46-116) Troponin I 0.250 ng/mL (0.000-0.056) Total Protein 7.1 G/DL (6.4-8.2) Albumin 3.5 G/DL (3.4-5.0) Globulin 3.6 g/dL Albumin/Globulin Ratio 1.0 (1.0-2.7) Triglycerides Level 223 MG/DL (30-150) H Cholesterol Level 181 MG/DL (< 200) LDL Cholesterol 110 mg/dL (<100) H HDL Cholesterol 45 MG/DL (40-60) Cholesterol/HDL Ratio 4.0 (3.3-4.4) Microbiology Date/Time Source Procedure Growth Status 04/22/19 06:45 Blood Blood Culture - Preliminary NO GROWTH AFTER 24 HOURS Resulted 04/22/19 06:45 Blood Blood Culture - Preliminary NO GROWTH AFTER 24 HOURS Resulted Intake and Output 04/23/19 04/24/19 19:00 07:00 Intake Total 720 ml 650 ml Balance 720 ml 650 ml Intake Oral 720 ml 650 ml # Voids 3 2 Objective PHYSICAL EXAMINATION: GENERAL: The patient is a well-developed and well-nourished white female, who is in moderate respiratory distress. HEENT: Eyes, pupils are equal and responsive to light and accommodation. Extraocular movements are intact. NECK: Supple without lymphadenopathy. CHEST: Diffuse wheezes in bilateral bases. Otherwise, without crackles or rales. CARDIOVASCULAR: Regular rhythm and rate. S1, S2 are normal without murmurs, rubs, or gallops. ABDOMEN: Soft, nontender, and nondistended. Positive bowel sounds. No evidence of hepatosplenomegaly. Currently, no rebound or guarding noted. EXTREMITIES: Negative for clubbing, cyanosis, or edema. RECTAL/GENITAL: Not performed. NEUROLOGIC: Cranial nerves II through XII are grossly intact without focal deficits. Motor strength is 5/5 bilaterally. Deep tendon reflexes are 2+ plantar. Assessment/Plan Assessment/Plan ASSESSMENT: This is a 69-year-old white female. 1. Dyspnea. 2. Congestive heart failure-systolic. 3. Chronic obstructive pulmonary disease. 4. Uncontrolled hypertension. 5. Hypercholesteremia. 6. Anxiety disorder. 7. Psoriasis. TREATMENT: 1. Shortness of breath/congestive heart failure. A Cardiology consultation= Dr. Gerardo Coleman. A Pulmonary consultation has been obtained with Dr. Marcello Addison. The patient has been on BiPAP overnight. We will follow recommendations of Pulmonary. 2. Chronic obstructive pulmonary disease. As above, a Pulmonary consultation has been obtained with Dr. Marcello Addison. We will follow recommendations of Pulmonary. 3. Uncontrolled hypertension. The patient has been placed on hydralazine intravenously. We will follow recommendations of Cardiology. 4. Hypercholesterolemia. Continue atorvastatin as above. 5. Anxiety disorder. Continue Paxil as above. 6. Psoriasis. 7. Insomnia. Continue Ambien as above. Gino Jesus MD Apr 24, 2019 16:20
--- NOTE | 2019-04-24 19:30 | NUR ---
HAND-OFF: Report given to Charisse HOOKER. Patient is stable.
--- NOTE | 2019-04-24 19:31 | NUR ---
NURSE NOTES: Received report & pt from MORRO Small. Pt lying in bed, a&ox4, on O2 via NC @ 2LPM. No s/s of acute distress & no c/o pain at this time. IV site intact & S/L'd. Bed in lowest position, call light within reach. Will continue to monitor.
[2019-04-24] MEDS: Atorvastatin 20mg tab ORAL SCH (20:57)
--- NOTE | 2019-04-24 22:56 | Cardiology Progress Note ---
Assessment/Plan Assessment/Plan improving on current management Subjective Subjective the patient reports significant improvement, her breathing is much better Objective Last 24 Hour Vital Signs Date Time Temp Pulse Resp B/P (MAP) Pulse Ox O2 Delivery O2 Flow Rate FiO2 04/24/19 21:00 Nasal Cannula 2.0 04/24/19 20:00 97.8 67 17 157/79 (105) 95 04/24/19 19:03 Nasal Cannula 2.0 28 04/24/19 19:03 70 18 99 Nasal Cannula 2.0 28 67 16 97 04/24/19 18:53 67 16 97 Nasal Cannula 2.0 28 04/24/19 16:00 97.8 64 20 142/70 (94) 95 04/24/19 16:00 Nasal Cannula 2.0 04/24/19 12:00 97.4 77 21 132/62 (85) 96 04/24/19 12:00 67 04/24/19 12:00 Nasal Cannula 2.0 04/24/19 09:35 76 04/24/19 08:36 Nasal Cannula 2.0 28 04/24/19 08:00 96.8 81 22 131/68 (89) 94 04/24/19 08:00 Nasal Cannula 2.0 04/24/19 04:00 98.4 67 18 131/68 (89) 97 04/24/19 04:00 66 04/24/19 04:00 Nasal Cannula 2.0 04/24/19 01:00 Nasal Cannula 2.0 04/24/19 00:00 90 04/24/19 00:00 98.1 93 20 123/67 (85) 98 General Appearance: no apparent distress EENT: PERRL/EOMI Neck: no JVD Rhythm: NSR Cardiovascular: regular rhythm Respiratory/Chest: crackles/rales - few at bases Abdomen: no organomegaly Extremities: normal capillary refill Intake and Output 04/23/19 04/24/19 18:59 06:59 Intake Total 720 ml 650 ml Balance 720 ml 650 ml Intake Oral 720 ml 650 ml # Voids 3 2 Laboratory Tests Test 04/24/19 03:28 White Blood Count 11.0 K/UL (4.8-10.8) H Red Blood Count 3.97 M/UL (4.20-5.40) L Hemoglobin 12.9 G/DL (12.0-16.0) Hematocrit 37.7 % (37.0-47.0) Mean Corpuscular Volume 95 FL (80-99) Mean Corpuscular Hemoglobin 32.6 PG (27.0-31.0) H Mean Corpuscular Hemoglobin Concent 34.3 G/DL (32.0-36.0) Red Cell Distribution Width 11.8 % (11.6-14.8) Platelet Count 284 K/UL (150-450) Mean Platelet Volume 5.6 FL (6.5-10.1) L Neutrophils (%) (Auto) 52.8 % (45.0-75.0) Lymphocytes (%) (Auto) 40.9 % (20.0-45.0) Monocytes (%) (Auto) 5.1 % (1.0-10.0) Eosinophils (%) (Auto) 0.7 % (0.0-3.0) Basophils (%) (Auto) 0.5 % (0.0-2.0) Sodium Level 140 MMOL/L (136-145) Potassium Level 3.3 MMOL/L (3.5-5.1) L Chloride Level 103 MMOL/L (98-107) Carbon Dioxide Level 30 MMOL/L (21-32) Anion Gap 7 mmol/L (5-15) Blood Urea Nitrogen 22 mg/dL (7-18) H Creatinine 0.7 MG/DL (0.55-1.30) Estimat Glomerular Filtration Rate > 60 mL/min (>60) Glucose Level 86 MG/DL (74-106) Calcium Level 9.2 MG/DL (8.5-10.1) Phosphorus Level 3.2 MG/DL (2.5-4.9) Magnesium Level 1.9 MG/DL (1.8-2.4) Total Bilirubin 0.3 MG/DL (0.2-1.0) Aspartate Amino Transf (AST/SGOT) 18 U/L (15-37) Alanine Aminotransferase (ALT/SGPT) 31 U/L (12-78) Alkaline Phosphatase 57 U/L (46-116) Troponin I 0.250 ng/mL (0.000-0.056) Total Protein 7.1 G/DL (6.4-8.2) Albumin 3.5 G/DL (3.4-5.0) Globulin 3.6 g/dL Albumin/Globulin Ratio 1.0 (1.0-2.7) Triglycerides Level 223 MG/DL (30-150) H Cholesterol Level 181 MG/DL (< 200) LDL Cholesterol 110 mg/dL (<100) H HDL Cholesterol 45 MG/DL (40-60) Cholesterol/HDL Ratio 4.0 (3.3-4.4) Microbiology Date/Time Source Procedure Growth Status 04/22/19 06:45 Blood Blood Culture - Preliminary NO GROWTH AFTER 24 HOURS Resulted 04/22/19 06:45 Blood Blood Culture - Preliminary NO GROWTH AFTER 24 HOURS Resulted Krysten Lundberg MD Apr 24, 2019 22:56
[2019-04-25 04:00] VITALS: BP 160/82
[2019-04-25] MEDS: NovoLOG Insulin Flexpen SUBQ SCH ×4 (06:14→20:54)
--- NOTE | 2019-04-25 07:14 | NUR ---
NURSE NOTES: Patient is in bed awake and able to verbalize needs. Stable. Denies pain or SOB. 2L O2 via NC in place, tolerated well. Patient encouraged to use call light for assistance, verbalized understanding. Patient is in bed in locked and lowest position with call light within reach. Will continue to monitor.
--- NOTE | 2019-04-25 07:30 | NUR ---
HAND-OFF: Report given to MORRO Small. Rounds done. Pt in stable condition.
--- NOTE | 2019-04-25 07:32 | Pulmonology Progress Note ---
Assessment/Plan Assessment/Plan ASSESSMENT Acute respiratory failure-resolved COPD Acute CHF with new systolic dysfunction Hypertensive urgency Elevated troponin Severe pulmonary hypertension Diabetes mellitus with hyperglycemia Hyperlipidemia Tobacco use disorder PLAN OF CARE on [facility] floor now Off BiPAP O2 titrate to keep pulse ox above 92% HHN ATC and prn trial of theophylline ; a/tussive prn no need for steroids at thsi time diuresis antiplatelet therapy and statin, lipuid apnel noted CXR noted CTA no PE Echo with rEF 40% -apparently new and RVSP 79 ( apparently history of normal coronary arteries per [facility] record-as per cardio notes) prior hx of renal artery stenosis, status post MIXER WET POUR, cardio follows troponin trending down [employer] counselor on smoking cessation declined Nicotine patch for now K stable after replacement X ray ribs done, results pending pain management BS management with SSI check HgbA1c case discussed and evaluated by supervising physician Subjective Allergies: Coded Allergies: No Known Allergies (Unverified , 04/22/19) Subjective troponin trending down, no chest pain no SOB leuk resolved, afebrile pulse ox stable on O2 via NC Objective Last 24 Hour Vital Signs Date Time Temp Pulse Resp B/P (MAP) Pulse Ox O2 Delivery O2 Flow Rate FiO2 04/25/19 04:00 97.5 66 16 160/82 (108) 94 04/24/19 23:51 97.9 61 16 151/81 (104) 93 04/24/19 21:00 Nasal Cannula 2.0 04/24/19 20:00 97.8 67 17 157/79 (105) 95 04/24/19 19:03 Nasal Cannula 2.0 28 04/24/19 19:03 70 18 99 Nasal Cannula 2.0 28 67 16 97 04/24/19 18:53 67 16 97 Nasal Cannula 2.0 28 04/24/19 16:00 97.8 64 20 142/70 (94) 95 04/24/19 16:00 Nasal Cannula 2.0 04/24/19 12:00 97.4 77 21 132/62 (85) 96 04/24/19 12:00 67 04/24/19 12:00 Nasal Cannula 2.0 04/24/19 09:35 76 04/24/19 08:36 Nasal Cannula 2.0 28 04/24/19 08:00 96.8 81 22 131/68 (89) 94 04/24/19 08:00 Nasal Cannula 2.0 Intake and Output 04/24/19 04/25/19 19:00 07:00 Intake Total 480 ml Balance 480 ml Intake Oral 480 ml # Voids 3 Objective General Appearance: no acute distress HEENT: normocephalic, atraumatic, anicteric, mucous membranes moist, PERRL, O2 via NC Respiratory/Chest: lungs clear - with moderate air exchange, no wheezing, no accessory muscle use Cardiovascular: normal peripheral pulses, normal rate Abdomen: soft, non tender, non distended Extremities: trace edema Neurologic/Psychiatric: alert, oriented x 3, responsive Musculoskeletal: normal muscle bulk Laboratory Tests 04/25/19 06:00: White Blood Count [Pending], Red Blood Count [Pending], Hemoglobin [Pending], Hematocrit [Pending], Mean Corpuscular Volume [Pending], Mean Corpuscular Hemoglobin [Pending], Mean Corpuscular Hemoglobin Concent [Pending], Red Cell Distribution Width [Pending], Platelet Count [Pending], Mean Platelet Volume [ Pending], Neutrophils (%) (Auto) [Pending], Lymphocytes (%) (Auto) [Pending], Monocytes (%) (Auto) [Pending], Eosinophils (%) (Auto) [Pending], Basophils (%) (Auto) [Pending], Sodium Level [Pending], Potassium Level [Pending], Chloride Level [Pending], Carbon Dioxide Level [Pending], Blood Urea Nitrogen [Pending], Creatinine [Pending], Estimat Glomerular Filtration Rate [Pending], Glucose Level [Pending], Calcium Level [Pending] Current Medications Medications (Trade) Dose Ordered Sig/Emma Route PRN Reason Start Time Stop Time Status Last Admin Dose Admin Acetaminophen (Tylenol) 650 mg Q4H PRN ORAL fever 04/22/19 09:30 05/22/19 09:29 Albuterol/ Ipratropium (Albuterol/ Ipratropium) 3 ml Q4H PRN HHN dyspnea 04/22/19 09:30 04/27/19 09:29 Albuterol/ Ipratropium (Albuterol/ Ipratropium) 3 ml TIDRT HHN 04/24/19 13:00 04/29/19 12:59 04/24/19 18:53 Aspirin (Ecotrin) 81 mg DAILY ORAL 04/23/19 16:30 05/23/19 16:29 04/24/19 09:51 Atorvastatin Calcium (Lipitor) 20 mg BEDTIME ORAL 04/23/19 21:00 05/23/19 20:59 04/24/19 20:57 Clonidine HCl (Catapres Tab) 0.1 mg Q4H PRN ORAL sbp more than 160 04/22/19 09:30 05/22/19 09:29 Dextrose (Dextrose 50%) 25 ml Q30M PRN IV Hypoglycemia 04/22/19 09:30 05/22/19 09:29 Dextrose (Dextrose 50%) 50 ml Q30M PRN IV Hypoglycemia 04/22/19 09:30 05/22/19 09:29 Docusate Sodium (Colace) 100 mg TWICE A DAY ORAL 04/23/19 18:00 05/23/19 17:59 04/24/19 18:08 Furosemide (Lasix) 40 mg DAILY IV 04/24/19 09:00 05/24/19 08:59 04/24/19 09:54 Heparin Sodium (Porcine) (Heparin 5000 units/ml) 5,000 units EVERY 12 HOURS SUBQ 04/22/19 21:00 05/22/19 20:59 04/24/19 20:58 Hydralazine HCl (Apresoline) 10 mg Q4H PRN IV sbp> 160 04/22/19 13:00 05/22/19 12:29 Insulin Aspart (NovoLOG) BEFORE MEALS AND HS SUBQ 04/22/19 16:30 05/22/19 16:29 04/23/19 22:49 Lorazepam (Ativan 2mg/ml 1ml) 0.5 mg Q4H PRN IV For Anxiety 04/22/19 09:30 04/29/19 09:29 04/24/19 23:15 Nitroglycerin (Ntg) 0.4 mg Q5M X 3 DOSES PRN SL Prn Chest Pain 04/22/19 09:30 05/22/19 09:29 Ondansetron HCl (Zofran) 4 mg Q6H PRN IVP Nausea & Vomiting 04/22/19 09:30 05/22/19 09:29 04/22/19 20:10 Paroxetine HCl (Paxil) 20 mg DAILY ORAL 10/24/19 12:52 05/22/19 12:51 04/24/19 09:52 Promethazine HCl/ Codeine (Phenergan with Codeine) 5 ml Q6H PRN ORAL cough 04/22/19 09:30 05/22/19 09:29 Temazepam (Restoril) 15 mg HSPRN PRN ORAL Insomnia 04/22/19 09:30 04/29/19 09:29 04/24/19 20:57 Theophylline (Dick-Dur) 100 mg EVERY 12 HOURS ORAL 04/22/19 12:00 05/22/19 11:59 04/24/19 20:57 Harini Brock NP Apr 25, 2019 07:32
[2019-04-25] MEDS: Albuterol/Ipratropium 3ml neb HHN SCH ×3 (07:37→19:11)
[2019-04-25 07:50] LABS: EOSINOPHILS % (AUTO) 1.6 % (0.0-3.0); HEMATOCRIT 43.2 % (37.0-47.0); HEMOGLOBIN 14.6 G/DL (12.0-16.0); LYMPHOCYTES % (AUTO) 47.6 % (20.0-45.0); MEAN CORPUSCULAR VOLUME 95 FL (80-99); MONOCYTES % (AUTO) 6.6 % (1.0-10.0); NEUTROPHILS % (AUTO) 43.2 % (45.0-75.0); PLATELET COUNT 287 K/UL (150-450); RED BLOOD COUNT 4.54 M/UL (4.20-5.40); RED CELL DISTRIBUTION WIDTH 11.6 % (11.6-14.8); WHITE BLOOD COUNT 8.4 K/UL (4.8-10.8)
[2019-04-25 08:00] VITALS: BP 134/66
[2019-04-25 08:04] LABS: ANION GAP 11 mmol/L (5-15); BLOOD UREA NITROGEN 21 mg/dL (7-18); CALCIUM 9.8 MG/DL (8.5-10.1); CARBON DIOXIDE 30 MMOL/L (21-32); CHLORIDE 102 MMOL/L (98-107); CREATININE 0.8 MG/DL (0.55-1.30); POTASSIUM 4.1 MMOL/L (3.5-5.1); SODIUM 143 MMOL/L (136-145)
[2019-04-25] MEDS: Heparin 5000 units/ml inj SUBQ SCH ×2 (08:53→20:40)
[2019-04-25] MEDS: Theophylline ER 100mg ORAL SCH ×2 (08:54→20:45)
[2019-04-25] MEDS: PARoxetine 10mg tab ORAL SCH (08:54)
[2019-04-25] MEDS: Docusate 100mg cap ORAL SCH ×2 (08:54→17:18)
[2019-04-25] MEDS: Aspirin EC 81mg tab ORAL SCH (08:54)
[2019-04-25] MEDS ORDERED: Albuterol/Ipratropium 3ml neb HHN PRN (10:00)
--- NOTE | 2019-04-25 10:20 | Diagnostic Imaging Report ---
EXAM: XR Right Ribs and AP Chest, 3 or More Views CLINICAL HISTORY: Shortness of breath TECHNIQUE: Frontal and oblique views of the right ribs and frontal view of the chest. COMPARISON: Chest x-ray dated 04 22 19 FINDINGS: Lungs: Mildly increased interstitial markings. No focal consolidation Pleural space: Unremarkable. No pneumothorax. Heart: Unremarkable. No cardiomegaly. Mild atherosclerosis in the aortic arch. Mediastinum: Unremarkable. Bones joints: Minimally displaced fractures of the anterolateral aspects of the right 9th and 10th ribs. IMPRESSION: 1. Minimally displaced fractures of the anterolateral aspects of the right 9th and 10th ribs. 2. Mildly increased interstitial markings. This is likely related to chronic senescent changes although differential diagnosis may also include mild bronchitis or interstitial pneumonitis.
[2019-04-25 12:00] VITALS: BP 139/69
[2019-04-25] MEDS: Naproxen 500mg tab ORAL PRN (12:15)
[2019-04-25 16:00] VITALS: BP 127/71
--- NOTE | 2019-04-25 16:51 | Internal Med Progress Note ---
Subjective Date of Service: Apr 25, 2019 Physician Name Gino Jesus Attending Physician Ermias Tolentino MD Current Medications Medications (Trade) Dose Ordered Sig/Emma Route PRN Reason Start Time Stop Time Status Last Admin Dose Admin Acetaminophen (Tylenol) 650 mg Q4H PRN ORAL fever 04/22/19 09:30 05/22/19 09:29 Albuterol/ Ipratropium (Albuterol/ Ipratropium) 3 ml Q4H PRN HHN dyspnea 04/25/19 10:00 04/30/19 09:59 Albuterol/ Ipratropium (Albuterol/ Ipratropium) 3 ml TIDRT HHN 04/24/19 13:00 04/29/19 12:59 04/25/19 13:27 Aspirin (Ecotrin) 81 mg DAILY ORAL 04/23/19 16:30 05/23/19 16:29 04/25/19 08:54 Atorvastatin Calcium (Lipitor) 20 mg BEDTIME ORAL 04/23/19 21:00 05/23/19 20:59 04/24/19 20:57 Clonidine HCl (Catapres Tab) 0.1 mg Q4H PRN ORAL sbp more than 160 04/22/19 09:30 05/22/19 09:29 Dextrose (Dextrose 50%) 25 ml Q30M PRN IV Hypoglycemia 04/22/19 09:30 05/22/19 09:29 Dextrose (Dextrose 50%) 50 ml Q30M PRN IV Hypoglycemia 04/22/19 09:30 05/22/19 09:29 Docusate Sodium (Colace) 100 mg TWICE A DAY ORAL 04/23/19 18:00 05/23/19 17:59 04/25/19 08:54 Furosemide (Lasix) 40 mg DAILY IV 04/24/19 09:00 05/24/19 08:59 04/25/19 08:54 Heparin Sodium (Porcine) (Heparin 5000 units/ml) 5,000 units EVERY 12 HOURS SUBQ 04/22/19 21:00 05/22/19 20:59 04/25/19 08:53 Hydralazine HCl (Apresoline) 10 mg Q4H PRN IV sbp> 160 04/22/19 13:00 05/22/19 12:29 Insulin Aspart (NovoLOG) BEFORE MEALS AND HS SUBQ 04/22/19 16:30 05/22/19 16:29 04/25/19 12:17 Lorazepam (Ativan 2mg/ml 1ml) 0.5 mg Q4H PRN IV For Anxiety 04/22/19 09:30 04/29/19 09:29 04/24/19 23:15 Naproxen (Naprosyn) 500 mg TWICE A DAY PRN ORAL Mild Pain (Pain Scale 1-3) 04/25/19 11:15 05/25/19 11:14 04/25/19 12:15 Nitroglycerin (Ntg) 0.4 mg Q5M X 3 DOSES PRN SL Prn Chest Pain 04/22/19 09:30 05/22/19 09:29 Ondansetron HCl (Zofran) 4 mg Q6H PRN IVP Nausea & Vomiting 04/22/19 09:30 05/22/19 09:29 04/25/19 13:42 Paroxetine HCl (Paxil) 20 mg DAILY ORAL 04/22/19 12:52 05/22/19 12:51 04/25/19 08:54 Promethazine HCl/ Codeine (Phenergan with Codeine) 5 ml Q6H PRN ORAL cough 04/22/19 09:30 05/22/19 09:29 Temazepam (Restoril) 15 mg HSPRN PRN ORAL Insomnia 04/22/19 09:30 04/29/19 09:29 04/24/19 20:57 Theophylline (Dick-Dur) 100 mg EVERY 12 HOURS ORAL 04/22/19 12:00 05/22/19 11:59 04/25/19 08:54 Allergies: Coded Allergies: No Known Allergies (Unverified , 04/22/19) ROS Limited/Unobtainable: No Constitutional: Reports: no symptoms HEENT: Reports: no symptoms Cardiovascular: Reports: no symptoms Respiratory: Reports: shortness of breath Gastrointestinal/Abdominal: Reports: no symptoms Genitourinary: Reports: no symptoms Neurologic/Psychiatric: Reports: no symptoms Subjective 69 YO F admitted with respiratory failure. Now acute CHF. Cover for Mike Tolentino Objective Last Vital Signs Date Time Temp Pulse Resp B/P (MAP) Pulse Ox O2 Delivery O2 Flow Rate FiO2 04/25/19 13:37 68 18 99 Nasal Cannula 2.0 28 62 18 99 04/25/19 12:00 98.3 139/69 (92) Laboratory Tests Test 04/25/19 06:00 White Blood Count 8.4 K/UL (4.8-10.8) Red Blood Count 4.54 M/UL (4.20-5.40) Hemoglobin 14.6 G/DL (12.0-16.0) Hematocrit 43.2 % (37.0-47.0) Mean Corpuscular Volume 95 FL (80-99) Mean Corpuscular Hemoglobin 32.2 PG (27.0-31.0) H Mean Corpuscular Hemoglobin Concent 33.9 G/DL (32.0-36.0) Red Cell Distribution Width 11.6 % (11.6-14.8) Platelet Count 287 K/UL (150-450) Mean Platelet Volume 5.9 FL (6.5-10.1) L Neutrophils (%) (Auto) 43.2 % (45.0-75.0) L Lymphocytes (%) (Auto) 47.6 % (20.0-45.0) H Monocytes (%) (Auto) 6.6 % (1.0-10.0) Eosinophils (%) (Auto) 1.6 % (0.0-3.0) Basophils (%) (Auto) 1.0 % (0.0-2.0) Sodium Level 143 MMOL/L (136-145) Potassium Level 4.1 MMOL/L (3.5-5.1) Chloride Level 102 MMOL/L (98-107) Carbon Dioxide Level 30 MMOL/L (21-32) Anion Gap 11 mmol/L (5-15) Blood Urea Nitrogen 21 mg/dL (7-18) H Creatinine 0.8 MG/DL (0.55-1.30) Estimat Glomerular Filtration Rate > 60 mL/min (>60) Glucose Level 85 MG/DL (74-106) Calcium Level 9.8 MG/DL (8.5-10.1) Intake and Output 04/24/19 04/25/19 19:00 07:00 Intake Total 480 ml Balance 480 ml Intake Oral 480 ml # Voids 3 Objective PHYSICAL EXAMINATION: GENERAL: The patient is a well-developed and well-nourished white female, who is in moderate respiratory distress. HEENT: Eyes, pupils are equal and responsive to light and accommodation. Extraocular movements are intact. NECK: Supple without lymphadenopathy. CHEST: Diffuse wheezes in bilateral bases. Otherwise, without crackles or rales. CARDIOVASCULAR: Regular rhythm and rate. S1, S2 are normal without murmurs, rubs, or gallops. ABDOMEN: Soft, nontender, and nondistended. Positive bowel sounds. No evidence of hepatosplenomegaly. Currently, no rebound or guarding noted. EXTREMITIES: Negative for clubbing, cyanosis, or edema. RECTAL/GENITAL: Not performed. NEUROLOGIC: Cranial nerves II through XII are grossly intact without focal deficits. Motor strength is 5/5 bilaterally. Deep tendon reflexes are 2+ plantar. Assessment/Plan Assessment/Plan ASSESSMENT: This is a 69-year-old white female. 1. Dyspnea. 2. Congestive heart failure-systolic. 3. Chronic obstructive pulmonary disease. 4. Uncontrolled hypertension. 5. Hypercholesteremia. 6. Anxiety disorder. 7. Psoriasis. TREATMENT: 1. Shortness of breath/congestive heart failure. A Cardiology consultation= Dr. Gerardo Coleman. A Pulmonary consultation has been obtained with Dr. Marcello Addison. The patient has been on BiPAP overnight. We will follow recommendations of Pulmonary. 2. Chronic obstructive pulmonary disease. As above, a Pulmonary consultation has been obtained with Dr. Marcello Addison. We will follow recommendations of Pulmonary. 3. Uncontrolled hypertension. The patient has been placed on hydralazine intravenously. We will follow recommendations of Cardiology. 4. Hypercholesterolemia. Continue atorvastatin as above. 5. Anxiety disorder. Continue Paxil as above. 6. Psoriasis. 7. Insomnia. Continue Ambien as above. Gino Jesus MD Apr 25, 2019 16:51
--- NOTE | 2019-04-25 19:12 | NUR ---
NURSE NOTES: Patient complains of palpitations and stated, "my heart is racing." Pulse is 99. Reported to Dr. Coleman, new orders for STAT EKG read back and carried out. Will continue to monitor. Patient is stable
--- NOTE | 2019-04-25 19:30 | NUR ---
NURSE NOTES: EKG results reported to Dr. Coleman. New orders for Toprol XL read back and carried out. Patient is stable.
--- NOTE | 2019-04-25 19:30 | NUR ---
HAND-OFF: Report given to Charisse HOOKER. Patient is stable.
[2019-04-25] MEDS ORDERED: Metoprolol Succinate XL 50mg tab ORAL SCH (19:45)
[2019-04-25 20:00] VITALS: BP 135/95
[2019-04-25] MEDS: Atorvastatin 20mg tab ORAL SCH (20:45)
[2019-04-26] VITALS: BP 150/78
[2019-04-26] MEDS: LORazepam Inj 2mg/ml 1ml IV PRN (00:47)
[2019-04-26 04:00] VITALS: BP 131/74
[2019-04-26 05:26] LABS: EOSINOPHILS % (AUTO) 1.9 % (0.0-3.0); HEMATOCRIT 43.5 % (37.0-47.0); HEMOGLOBIN 14.8 G/DL (12.0-16.0); LYMPHOCYTES % (AUTO) 40.4 % (20.0-45.0); MEAN CORPUSCULAR VOLUME 94 FL (80-99); MONOCYTES % (AUTO) 6.3 % (1.0-10.0); NEUTROPHILS % (AUTO) 50.4 % (45.0-75.0); PLATELET COUNT 282 K/UL (150-450); RED BLOOD COUNT 4.62 M/UL (4.20-5.40); RED CELL DISTRIBUTION WIDTH 11.1 % (11.6-14.8); WHITE BLOOD COUNT 9.9 K/UL (4.8-10.8)
[2019-04-26 05:37] LABS: ANION GAP 7 mmol/L (5-15); BLOOD UREA NITROGEN 20 mg/dL (7-18); CALCIUM 9.6 MG/DL (8.5-10.1); CARBON DIOXIDE 32 MMOL/L (21-32); CHLORIDE 101 MMOL/L (98-107); CREATININE 0.8 MG/DL (0.55-1.30); POTASSIUM 3.8 MMOL/L (3.5-5.1); SODIUM 140 MMOL/L (136-145)
[2019-04-26] MEDS: NovoLOG Insulin Flexpen SUBQ SCH ×2 (06:10→12:12)
[2019-04-26] MEDS: Albuterol/Ipratropium 3ml neb HHN SCH ×2 (07:00→13:29)
--- NOTE | 2019-04-26 07:32 | NUR ---
HAND-OFF: Report given to MORRO Bethea. Rounds done.
[2019-04-26 08:00] VITALS: BP 132/77
--- NOTE | 2019-04-26 08:00 | NUR ---
NURSE NOTES: Received report from Charisse HOOKER. Patient is awake and oriented, no acute distress noted, reporting no pain at this time. IV intact, patent locked. Patient's needs met at this time. Fall precautions maintained. Side rails upx3, bed low and locked, call light in reach, patient refuses non-slip socks, education provided on fall risk but patient still refuses.
[2019-04-26] MEDS: Heparin 5000 units/ml inj SUBQ SCH (10:08)
[2019-04-26] MEDS: PARoxetine 10mg tab ORAL SCH (10:09)
[2019-04-26] MEDS: Docusate 100mg cap ORAL SCH (10:09)
[2019-04-26] MEDS: Aspirin EC 81mg tab ORAL SCH (10:09)
[2019-04-26] MEDS: Theophylline ER 100mg ORAL SCH (10:09)
[2019-04-26] MEDS: Naproxen 500mg tab ORAL PRN (10:10)
[2019-04-26] MEDS ORDERED: FUROSEMIDE20 M1 ORAL (11:55)
[2019-04-26 12:00] VITALS: BP 132/73
--- NOTE | 2019-04-26 13:15 | Cardiology Report ---
APPROVED REPORT EXAM: Two-dimensional and M-mode echocardiogram with Doppler and color Doppler. INDICATION Coronary artery disease M-Mode DIMENSIONS IVSd1.2 (0.7-1.1cm)Left Atrium (MM)4.0 (1.6-4.0cm) LVDd5.6 (3.5-5.6cm)Aortic Root2.9 (2.0-3.7cm) PWd0.8 (0.7-1.1cm)Aortic Cusp Exc.1.7 (1.5-2.0cm) LVDs4.0 (2.5-4.0cm) PWs1.5 cm Anteroseptal wall, lareal wall, apical cap and septal wall hypokinesia. Ischemic cardiomyopathy cannot be excluded. Normal left ventricular chamber size. Left ventricular ejection fraction estimated to be 40%. Mild left ventricular hypertrophy. Anterior Echo-free space, may be due to pericardial fat or effusion. All other cardiac chamber sizes are within normal limits. Focal aortic valve sclerosis with adequate cusp excursion. Thickened mitral valve leaflets with normal excursion. Mild mitral annulus and aortic root calcification. Pulmonic valve not well visualized. Normal tricuspid valve structure. IVC dilated at 2.4 cm without physiological collapse, suggestive of increased RA pressure. A color flow and spectral Doppler study was performed and revealed: Trace aortic regurgitation. Mild mitral regurgitation. Left ventricular diastolic function could not be determined due to arrhythmia. Mild tricuspid regurgitation. Tricuspid systolic velocities suggests peak right ventricular systolic pressure of 68 mmHg, consistent with severe pulmonary hypertension. Trace pulmonic regurgitation present.
--- NOTE | 2019-04-26 13:57 | Internal Med Progress Note ---
Subjective Date of Service: Apr 26, 2019 Physician Name Gino Jesus Attending Physician Ermias Tolentino MD Current Medications Medications (Trade) Dose Ordered Sig/Emma Route PRN Reason Start Time Stop Time Status Last Admin Dose Admin Acetaminophen (Tylenol) 650 mg Q4H PRN ORAL fever 04/22/19 09:30 05/22/19 09:29 Albuterol/ Ipratropium (Albuterol/ Ipratropium) 3 ml Q4H PRN HHN dyspnea 04/25/19 10:00 04/30/19 09:59 Albuterol/ Ipratropium (Albuterol/ Ipratropium) 3 ml TIDRT HHN 04/24/19 13:00 04/29/19 12:59 04/25/19 19:11 Aspirin (Ecotrin) 81 mg DAILY ORAL 04/23/19 16:30 05/23/19 16:29 04/26/19 10:09 Atorvastatin Calcium (Lipitor) 20 mg BEDTIME ORAL 04/23/19 21:00 05/23/19 20:59 04/25/19 20:45 Clonidine HCl (Catapres Tab) 0.1 mg Q4H PRN ORAL sbp more than 160 04/22/19 09:30 05/22/19 09:29 Dextrose (Dextrose 50%) 25 ml Q30M PRN IV Hypoglycemia 04/22/19 09:30 05/22/19 09:29 Dextrose (Dextrose 50%) 50 ml Q30M PRN IV Hypoglycemia 04/22/19 09:30 05/22/19 09:29 Docusate Sodium (Colace) 100 mg TWICE A DAY ORAL 04/23/19 18:00 05/23/19 17:59 04/26/19 10:09 Furosemide (Lasix) 40 mg DAILY IV 04/27/19 09:00 05/24/19 08:59 Heparin Sodium (Porcine) (Heparin 5000 units/ml) 5,000 units EVERY 12 HOURS SUBQ 04/22/19 21:00 05/22/19 20:59 04/26/19 10:08 Insulin Aspart (NovoLOG) BEFORE MEALS AND HS SUBQ 04/22/19 16:30 05/22/19 16:29 04/26/19 12:12 Lorazepam (Ativan 2mg/ml 1ml) 0.5 mg Q4H PRN IV For Anxiety 04/22/19 09:30 04/29/19 09:29 04/26/19 00:47 Naproxen (Naprosyn) 500 mg TWICE A DAY PRN ORAL Mild Pain (Pain Scale 1-3) 04/25/19 11:15 05/25/19 11:14 04/26/19 10:10 Nitroglycerin (Ntg) 0.4 mg Q5M X 3 DOSES PRN SL Prn Chest Pain 04/22/19 09:30 05/22/19 09:29 Ondansetron HCl (Zofran) 4 mg Q6H PRN IVP Nausea & Vomiting 04/22/19 09:30 05/22/19 09:29 04/25/19 13:42 Paroxetine HCl (Paxil) 20 mg DAILY ORAL 04/22/19 12:52 05/22/19 12:51 04/26/19 10:09 Promethazine HCl/ Codeine (Phenergan with Codeine) 5 ml Q6H PRN ORAL cough 04/22/19 09:30 05/22/19 09:29 Temazepam (Restoril) 15 mg HSPRN PRN ORAL Insomnia 04/22/19 09:30 04/29/19 09:29 04/25/19 20:45 Theophylline (Dick-Dur) 100 mg EVERY 12 HOURS ORAL 04/22/19 12:00 05/22/19 11:59 04/26/19 10:09 Allergies: Coded Allergies: No Known Allergies (Unverified , 04/22/19) ROS Limited/Unobtainable: No Constitutional: Reports: no symptoms HEENT: Reports: no symptoms Cardiovascular: Reports: no symptoms Respiratory: Reports: shortness of breath Gastrointestinal/Abdominal: Reports: no symptoms Genitourinary: Reports: no symptoms Neurologic/Psychiatric: Reports: no symptoms Subjective 69 YO F admitted with respiratory failure. Now acute CHF. Cover for Int Jaden- DR Tolentino Objective Last Vital Signs Date Time Temp Pulse Resp B/P (MAP) Pulse Ox O2 Delivery O2 Flow Rate FiO2 04/26/19 13:29 Room Air 21 04/26/19 12:00 97.3 70 20 132/73 (92) 97 04/26/19 09:00 2.0 Laboratory Tests Test 04/26/19 04:45 White Blood Count 9.9 K/UL (4.8-10.8) Red Blood Count 4.62 M/UL (4.20-5.40) Hemoglobin 14.8 G/DL (12.0-16.0) Hematocrit 43.5 % (37.0-47.0) Mean Corpuscular Volume 94 FL (80-99) Mean Corpuscular Hemoglobin 32.0 PG (27.0-31.0) H Mean Corpuscular Hemoglobin Concent 34.0 G/DL (32.0-36.0) Red Cell Distribution Width 11.1 % (11.6-14.8) L Platelet Count 282 K/UL (150-450) Mean Platelet Volume 5.6 FL (6.5-10.1) L Neutrophils (%) (Auto) 50.4 % (45.0-75.0) Lymphocytes (%) (Auto) 40.4 % (20.0-45.0) Monocytes (%) (Auto) 6.3 % (1.0-10.0) Eosinophils (%) (Auto) 1.9 % (0.0-3.0) Basophils (%) (Auto) 1.0 % (0.0-2.0) Sodium Level 140 MMOL/L (136-145) Potassium Level 3.8 MMOL/L (3.5-5.1) Chloride Level 101 MMOL/L (98-107) Carbon Dioxide Level 32 MMOL/L (21-32) Anion Gap 7 mmol/L (5-15) Blood Urea Nitrogen 20 mg/dL (7-18) H Creatinine 0.8 MG/DL (0.55-1.30) Estimat Glomerular Filtration Rate > 60 mL/min (>60) Glucose Level 96 MG/DL (74-106) Hemoglobin A1c 5.5 % (4.3-6.0) Calcium Level 9.6 MG/DL (8.5-10.1) Intake and Output 04/25/19 04/26/19 19:00 07:00 Intake Total 480 ml Balance 480 ml Intake Oral 480 ml # Voids 2 Objective PHYSICAL EXAMINATION: GENERAL: The patient is a well-developed and well-nourished white female, who is in moderate respiratory distress. HEENT: Eyes, pupils are equal and responsive to light and accommodation. Extraocular movements are intact. NECK: Supple without lymphadenopathy. CHEST: Diffuse wheezes in bilateral bases. Otherwise, without crackles or rales. CARDIOVASCULAR: Regular rhythm and rate. S1, S2 are normal without murmurs, rubs, or gallops. ABDOMEN: Soft, nontender, and nondistended. Positive bowel sounds. No evidence of hepatosplenomegaly. Currently, no rebound or guarding noted. EXTREMITIES: Negative for clubbing, cyanosis, or edema. RECTAL/GENITAL: Not performed. NEUROLOGIC: Cranial nerves II through XII are grossly intact without focal deficits. Motor strength is 5/5 bilaterally. Deep tendon reflexes are 2+ plantar. Assessment/Plan Assessment/Plan ASSESSMENT: This is a 69-year-old white female. 1. Dyspnea. 2. Congestive heart failure-systolic. 3. Chronic obstructive pulmonary disease. 4. Uncontrolled hypertension. 5. Hypercholesteremia. 6. Anxiety disorder. 7. Psoriasis. TREATMENT: 1. Shortness of breath/congestive heart failure. A Cardiology consultation= Dr. Gerardo Coleman. A Pulmonary consultation has been obtained with Dr. Marcello Addison. The patient has been on BiPAP overnight. We will follow recommendations of Pulmonary. 2. Chronic obstructive pulmonary disease. As above, a Pulmonary consultation has been obtained with Dr. Marcello Addison. We will follow recommendations of Pulmonary. 3. Uncontrolled hypertension. The patient has been placed on hydralazine intravenously. We will follow recommendations of Cardiology. 4. Hypercholesterolemia. Continue atorvastatin as above. 5. Anxiety disorder. Continue Paxil as above. 6. Psoriasis. 7. Insomnia. Continue Ambien as above. Gino Jesus MD Apr 26, 2019 13:57
--- NOTE | 2019-04-26 14:19 | Cardiology Report ---
APPROVED REPORT EKG Measurement Heart [id number] Normal sinus rhythm T wave abnormality, consider lateral ischemia Abnormal ECG
--- NOTE | 2019-04-26 15:15 | NUR ---
NURSE NOTES: Patient discharged without distress. Discharge education/New Rx education provided to patient and patient verbalized of provided teaching. Patient given Rx. Patient given all belongings. Patient ambulate off unit to private vehicle, accompanied by RN. Addendum: 04/26/19 at 1517 by Neema Gayle RN Edit: Patient verbalized understanding of provided teaching.
--- NOTE | 2019-04-27 16:59 | Cardiology Report ---
APPROVED REPORT EKG Measurement Heart [id number] Atrial fibrillation Marked ST abnormality, possible inferior subendocardial injury Abnormal ECG
--- NOTE | 2019-04-28 09:02 | Discharge Summary ---
Discharge Summary Discharge Summary _ DATE OF ADMISSION: 04/22/2019 DATE OF DISCHARGE: 04/26/2019 DISCHARGED BY: Dr. Tolentino REASON FOR ADMISSION: 69 years old female with past medical history of COPD, diabetes mellitus, hypertension, was brought by EMS after with increased difficulty of breathing. Patient apparently took Ambien last night and woke up in the morning with increased shortness of breath. Patient reported prior history of pulmonary edema along with COPD. Patient was markedly hypertensive by EMS. Patient started on the CPAP prior to arrival to ED. Patient initially was wheezing , but then improved after nebulizing treatment with bronchodilator was given by paramedics. Patient reported increased shortness of breath over the past 3 years , but acutely worsened last night. Patient reported smoking. Patient reported taking inhaler / Spiriva at home. She had not had any steroids . She denied fever and chills. She denied productive cough. Upon evaluation vital signs revealed significantly elevated blood pressure 201/ 100 , no fevers. WBC 17.1, stable hemoglobin and hematocrit. Stable electrolytes . BUN 11 , creatinine 1.1. Glucose 334. Stable LFT. Troponin - 0.026 EKG revealed sinus tachycardia, no acute ischemic changes . Pro BNP 1086. Chest x-ray revealed questionable small left pleural effusion. Urinalysis revealed no evidence of urinary tract infection, +3 protein. In emergency department patient received IV steroid, bronchodilator treatment , maintained on BiPAP, and admitted to direct observational unit for further management. CONSULTANTS: beater head Dr. Coleman pulmonary Dr. Addison [facility] COURSE: Patient admitted to direct observational unit. Wood Casket Maker and beater head followed. According to human resources operations coordinator , cause of shortness if breath was likely multifactorial , including anxiety attack with component of underlying COPD and uncontrolled blood pressure. There was no need for high-dose steroids as per human resources operations coordinator. Patient initially was maintained on the BiPAP. CT chest revealed no evidence of acute pulmonary emboli or other acute thoracic abnormality. Second troponin - 0.76, last troponin trended down to 0.25. Echocardiogram demonstrated hypokinesis of anteroseptal, lateral wall apical and septal wall. Left ventricular ejection fraction estimated to be 40%. Mild left ventricular hypertrophy. Right ventricular systolic pressure of 68 consistent with severe pulmonary hypertension. Bronchodilator treatment provided around the clock and as needed. Patient started on trial of theophylline. Antitussive provided as needed. No need for steroids at this time. Patient started on diuresis with close monitoring of volumes and cardiorenal parameters. Antiplatelet therapy and statin continued. Lipid panel revealed elevated triglycerides 223, elevated LDL 110, s table total cholesterol 181. Blood pressure was managed with beta-jeffrey, and hydralazine was on board as needed. Blood pressure stabilized. Prior to discharge blood pressure 132/73. According to beater head, patient had normal coronary arteries per [facility] past records and a reduced ejection fraction was apparently new. 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 Patient will need to follow up with beater head as outpatient. Patient was able to be weaned from BiPAP, initially to nasal cannula. Pulse oximetry was stable on room air prior to discharge. Patient counseled on smoking cessation. Patient declined Nicotine patch at this time. Potassium was replaced. Patient reported prior fall at home and pain at the back. X-ray of the ribs revealed minimally displaced fracture of the anterior lateral aspect of the right 9th and 10th ribs. Pain management was provided. Blood sugar was managed with sliding scale of insulin. Hemoglobin A1c 5.5. Paxil continued. Anxiety subsided. Patient clinically stabilized and was ready for discharge home. Blood pressure stabilized, pulse oximetry stable on room air. Patient will need close follow up with beater head for further management. FINAL DIAGNOSES: Acute respiratory failure requiring BiPAP- resolved COPD Acute CHF with new systolic dysfunction Hypertensive urgency- resolved Elevated troponin Severe pulmonary hypertension Diabetes mellitus with hyperglycemia Hyperlipidemia Tobacco use disorder Anxiety disorder Psoriasis DISCHARGE MEDICATIONS: See Medication Reconciliation list. DISCHARGE INSTRUCTIONS: Patient was discharged home . Follow up with primary care provider in one week. Harini Brock NP Apr 28, 2019 09:01
== END 2019-04-26 15:10 | disposition home or self-care (01) | DRG 291 ==
LOC: EDBD 07:08 → EDBEDREQ 07:47 → EMR 08:15 → 2W 08:37 → EDBEDREQ 11:01 → 2W 04-23 22:48 → 3E 04-24 13:15
PROC: 5A09357 Assistance with Respiratory Ventilation, Less than 24 Consecutive Hours, Continuous Positive Airway Pressure (ICD-10-PCS; principal; 2019-04-22)
DX: I11.0 Hypertensive heart disease with heart failure (principal); I50.21 Acute systolic (congestive) heart failure; J96.01 Acute respiratory failure with hypoxia; I16.1 Hypertensive emergency; F41.9 Anxiety disorder, unspecified; E78.00 Pure hypercholesterolemia, unspecified; L40.9 Psoriasis, unspecified; G47.00 Insomnia, unspecified; J44.9 Chronic obstructive pulmonary disease, unspecified; I16.0 Hypertensive urgency; R74.8 Abnormal levels of other serum enzymes; I25.10 Atherosclerotic heart disease of native coronary artery without angina pectoris; Z86.718 Personal history of other venous thrombosis and embolism; I27.20 Pulmonary hypertension, unspecified; F17.200 Nicotine dependence, unspecified, uncomplicated
CPT/HCPCS: 36415; 71045; 71275; 80048; 80053; 80061; 81003; 82962; 83036; 83605; 83690; 83735; 83880; 84100; 84484; 85007; 85025; 85379; 85610; 85730; 87040; 93005; 93306; 94640; 94660; 94664; 96374; 96375; 99285; J1815; J2405; J7620; J8499